=== PATIENT | female | born 1980 | race Caucasian/White ===

== ENCOUNTER 2018-01-31 18:39 | Emergency (ER) | payer MEDICAID, SELFPAY ==
[2018-01-31 18:40] VITALS: BP 121/73; PULSE 96; RESP 16; TEMP 37.1; O2SAT 97; BMI 26.6
--- NOTE | 2018-01-31 20:40 | ED.DCSUM_ITS ---
- ER Visit Summary Date of Service: 01/31/18 Chief Complaint: [] Cough/wheezing History of Present Illness: The patient is a 37 F [] asthmatic who presents with URI symptoms and worsening wheezing. Patient reports really using rescue inhaler prior to arrival without relief. She reports mild sore throat. Denies fevers. No other complaints at this time. She reports not using her asthma medications for the last 6 months. Physical Examination: [] Afebrile, vital signs stable. Cardia vascular exam is regular rate and rhythm. Lungs show wheezing in all lung nassar. Abdomen is soft and nontender. Remainder of exam is unremarkable. Test Results: [] None. Emergency Department Course and Treatment: [] Patient given albuterol and DuoNeb aerosol and 60 mg p.o. of prednisone. She was given a prescription for prednisone 40 mg ?5. She was encouraged to follow- up with her primary care physician. Treatment Plan: [] Follow-up with PCP. Disposition: [] Discharge, stable. Impression: [] URI Asthma exacerbation This note was generated with [employer] dictation software. It may contain incorrect words, spelling, and punctuation that were not noted in review of the chart prior to signing ED Disposition - Plan for ED Patient: Chief Complaint: Cough Referrals: Issac Jurado MD [Primary Care Provider] -
--- NOTE | 2018-01-31 20:40 | ED.DEP ---
ED Disposition - Plan for ED Patient: Disposition: Home or Assisted Living Chief Complaint: Cough Instructions: ED Bronchitis Asthmatic Prescriptions: Prednisone 20 mg PO BID #10 tab Referrals: Issac Jurado MD [Primary Care Provider] -
[2018-01-31 20:45] VITALS: PULSE 78; RESP 18
[2018-01-31] MEDS: Albuterol 2.5 MG/3 ML VIAL.NEB. INHALATION (20:45)
[2018-01-31] MEDS: Ipratropium/Albuterol Sulfate 3 ML AMPUL.NEB INHALATION (20:45)
[2018-01-31 20:54] VITALS: O2SAT 99
== END 2018-01-31 21:26 | disposition home or self-care (01) ==
LOC: ED 21:17
PROVIDERS: Emergency Provider Emergency Medicine; Family Provider Family Medicine; PCP Family Medicine
DX: J45.901 Unspecified asthma with (acute) exacerbation (principal); J06.9 Acute upper respiratory infection, unspecified; Z72.0 Tobacco use
CPT/HCPCS: 94640; 99282

== ENCOUNTER 2018-02-08 12:46 | Emergency (ER) | payer MEDICAID, SELFPAY ==
[2018-02-08 12:47] VITALS: BP 117/65; PULSE 83; RESP 18; TEMP 36.6; O2SAT 98; BMI 26.6
[2018-02-08 13:02] VITALS: BP 110/54; PULSE 93; RESP 14; O2SAT 98
--- NOTE | 2018-02-08 13:31 | ED.DCSUM_ITS ---
- ER Visit Summary Date of Service: 02/08/18 Chief Complaint: [Swelling to face and rash] History of Present Illness: The patient is a 37 F [presents to the emergency department with a rash that started yesterday on her right shoulder]. Patient developed swelling to her right upper eyelid and lips. Patient has the rash on her upper extremities. Slightly pruritic. Patient took some Benadryl yesterday. Patient has had similar episodes in the past. But never with the swelling to her lips. She denies any difficulty swallowing or difficulty breathing. Patient states she finished prednisone 2 days ago for bronchitis. Patient was not on antibiotics. Patient denies any other new medications. She denies any new soaps or detergents. Patient does not think she is . Patient has been under increased stress recently as she has a sick relative in hospice. Physical Examination: [HEENT-PERRLA, EOMI. Cranial nerves II through XII grossly intact. TMs clear. Mucous membranes moist. No adenopathy. Patient has urticaria involving the right upper eyelid as well as the upper and lower lips. There is no evidence of angioedema of the tongue or the oropharynx. Cardiovascular-regular rate and rhythm without murmur or ectopy Lungs-clear to auscultation, chest wall stable without crepitus or subcu emphysema Abdomen-normoactive bowel sounds, soft, nontender, no rebound or rigidity, no peritoneal signs. Skin exam-patient has urticaria involving right posterior shoulder, right upper arm, left antecubital area, and face. Extremities-intact ?4, normal range of motion, normal pulses, atraumatic] Test Results: [None indicated] Emergency Department Course and Treatment: [Patient was started on prednisone, Benadryl, and Pepcid] Treatment Plan: [Patient will start prednisone for 5 more days. She is advised to take Benadryl for itching.] Disposition: [Discharged to home in stable condition. Patient advised to return if difficulty swallowing or difficult the breathing.] Impression: Urticaria-etiology uncertain [] This note was generated with [employer] software. It may contain incorrect words, spelling, and punctuation that were not noted in review of the chart prior to signing ED Disposition - Plan for ED Patient: Chief Complaint: Shortness of Breath Referrals: Issac Jurado MD [Primary Care Provider] -
--- NOTE | 2018-02-08 13:31 | ED.DEP ---
ED Disposition - Plan for ED Patient: Chief Complaint: Shortness of Breath Instructions: ED Urticaria Prescriptions: Prednisone [Deltasone] 20 mg PO BID #10 tab Referrals: Issac Jurado MD [Primary Care Provider] - 3-5 Days Calvin Villalpando MD [COURTESY STAFF PHYSICIAN] - 3-5 Days
[2018-02-08] MEDS: predniSONE 20 MG Tablet 40 MG PO (13:53)
[2018-02-08] MEDS: DiphenhydrAMINE 25 MG Capsule PO (13:53)
[2018-02-08] MEDS: Famotidine 20 MG Tablet 40 MG PO (13:53)
[2018-02-08 13:56] VITALS: BP 90/74; PULSE 74; RESP 16; O2SAT 99
== END 2018-02-08 13:57 | disposition home or self-care (01) ==
LOC: ED 13:45
PROVIDERS: Emergency Provider Emergency Medicine; Family Provider Family Medicine; PCP Family Medicine
DX: L50.9 Urticaria, unspecified (principal); J45.909 Unspecified asthma, uncomplicated; Z72.0 Tobacco use
CPT/HCPCS: 99283

== ENCOUNTER 2019-09-01 05:55 | Emergency (ER) | payer BC, SELFPAY ==
[2019-09-01 05:56] VITALS: BP 117/66; PULSE 85; RESP 18; TEMP 36.7; O2SAT 93; BMI 25.9
--- NOTE | 2019-09-01 06:06 | RAD_ITS ---
STUDY: X-RAY CHEST REASON FOR EXAM: Female, 39 years old. Dyspnea TECHNIQUE: Frontal and lateral views of the chest. COMPARISON: None. FINDINGS: The lungs are clear and expanded. There is no demonstrated pleural abnormality. Normal size heart. Normal mediastinum and oliverio. Normal visualized pulmonary arteries. Normal visualized aortic arch and descending thoracic aorta. Normal visualized thoracic spine. Normal visualized ribs, clavicles, and shoulders. There is no demonstrated abnormality of the visualized soft tissue structures of the upper abdomen. RAD/Chest PA and Lateral IMPRESSION: Normal x-ray examination of the chest. Electronically Signed: Ken Contreras, at 7:32 EDT Tel , Service support ,
--- NOTE | 2019-09-01 06:08 | ED.DCSUM_ITS ---
- ER Visit Summary Date of Service: 09/01/19 Chief Complaint: Shortness of breath History of Present Illness: The patient is a 39 F who presents the emergency department with shortness of breath. Patient states that approximately 3 weeks ago she got a cold. She states that then it moved to her sinuses and is now on her chest. She notes wheezing and a cough. She notes fever at home. She has a history of asthma and states she has been doing her nebulizers without any help. Physical Examination: Afebrile vital signs are stable Gen: Well-nourished well-developed Head: Normocephalic atraumatic Eyes: Perrl EOMI ENT: TMs clear no rhinorrhea moist mucous membranes Neck: Supple no lymphadenopathy no JVD nontender CVS: Regular rate rhythm no murmurs normal S1-S2 Respiratory: Patient is slightly tachypneic. She has diminished breath sounds bilaterally with inspiratory and expiratory wheezes. Chest nontender Abdomen: Soft nontender nondistended normal bowel sounds no masses Back: Nontender Extremity: Nontender no edema Skin: Normal color no rash Neuro: alert orientated ?3 CN II-XII intact normal strength Psych: Normal affect normal mood Test Results: A chest x-ray was obtained. I do not see any obvious consolidation. Emergency Department Course and Treatment: Patient received breathing treatments and was given a dose of prednisone. Pretreatment peak flows were 100 posttreatment peak flows were 150. Patient is able to ambulate in the department at 91%. She does not wish to stay in the hospital. Patient was advised that given her peak flows being so low she is a high risk of returning to the hospital. She appears to have the capacity to make this decision. I am going to advise her to do every 2 hour aerosols. I will write her for prednisone. She understands return instructions. Impression: 1. Acute exacerbation of asthma This note was generated with [employer] dictation software. It may contain incorrect words, spelling, and punctuation that were not noted in review of the chart prior to signing Capacity - Capacity Assessment Tool Can the patient make a choice & communicate that choice?: Yes Can the patient understand benefits, risks and alternatives?: Yes Can the patient make a logical, rational choice?: Yes Is the choice the patient makes consistent w/ their values?: Yes Is there an impending, emergent risk to the patient?: No Does the patient have an Advance Directive?: No Is there a Surrogate Available?: No i.e. HCPOA: No i.e. close relative (spouse, child, parent, sibling)?: No ED Disposition - Plan for ED Patient: Disposition: Home or Assisted Living Instructions: ASTHMA, Acute (Adult) Prescriptions: Prednisone [Deltasone] 60 mg PO DAILY #12 tab Prescription Printed Albuterol Aerosols [Ventolin Aerosols] 2.5 mg INHALATION Q4H PRN #25 vial Prescription Printed Azithromycin [Zithromax Z-Mainor] 250 mg PO UD #1 box Prescription Printed Referrals: Issac Jurado MD [Primary Care Provider] - 3-5 Days Additional Instructions: Today I would recommend complete avoidance of tobacco use. You can do every 2 hour albuterol treatments Return to the emergency department if you feel you are worse or call 911 if need be.
[2019-09-01] MEDS: predniSONE 20 MG Tablet 60 MG PO (06:12)
[2019-09-01 06:19] VITALS: PULSE 98; RESP 22
[2019-09-01] MEDS: Ipratropium/Albuterol Sulfate 3 ML AMPUL.NEB INHALATION (06:19)
[2019-09-01] MEDS: Albuterol 2.5 MG/3 ML VIAL.NEB. INHALATION ×3 (06:19)
== END 2019-09-01 07:22 | disposition home or self-care (01) ==
PROVIDERS: Emergency Provider Emergency Medicine; Family Provider Family Medicine; PCP Family Medicine
DX: J45.901 Unspecified asthma with (acute) exacerbation (principal); Z72.0 Tobacco use
CPT/HCPCS: 71046; 94640; 99283

== ENCOUNTER 2019-09-10 01:39 | Observation (INO) | payer BC, SELFPAY ==
[2019-09-10] VITALS (15 sets, daily range): BP systolic 96–115; BP diastolic 46–74; PULSE 73–102; RESP 18–24; TEMP 36.6–37; O2SAT 89–95; BMI 25.7; BMI 25.2; BMI 25.3
--- NOTE | 2019-09-10 01:56 | RAD_ITS ---
STUDY: X-RAY CHEST REASON FOR EXAM: Female, 39 years old. Asthma. TECHNIQUE: PA and lateral views of the chest. COMPARISON: 09/01/2019. FINDINGS: The lungs are clear and expanded. There is no demonstrated pleural abnormality. Normal size heart. Normal mediastinum and oliverio. Normal visualized pulmonary arteries. Normal visualized aortic arch and descending thoracic aorta. Normal visualized thoracic spine. Normal visualized ribs, clavicles, and shoulders. There is no demonstrated abnormality of the visualized soft tissue structures of the upper abdomen. RAD/Chest PA and Lateral IMPRESSION: Normal x-ray examination of the chest. Electronically Signed: Mary Ann Brown MD at 2:52 EDT , Service support ,
--- NOTE | 2019-09-10 01:56 | EKG12_ITS ---
Test Reason : SOB Blood Pressure : / mmHG Vent. Rate : 092 BPM Atrial Rate : 092 BPM P-R Int : 140 ms QRS Dur : 072 ms QT Int : 338 ms P-R-T Axes : 080 086 020 degrees QTc Int : 417 ms Normal sinus rhythm Possible Left atrial enlargement Borderline ECG Confirmed by COLE MCGHEE, RAUDEL ([id number]), graphic editor MILKA GUERRERO ([id number]) on 09/12/2019 11:00:24 AM Referred By: ELINOR Confirmed By:RAUDEL GALVAN MD
[2019-09-10] MEDS: 0.9% Normal Saline 1,000 ML 150 ML IV (02:09)
[2019-09-10] MEDS: MethylPREDNISolone 125 MG/2 ML Vial IV (02:10)
[2019-09-10 02:22] LABS: Absolute Lymphocyte Count 2.77 X10^3/uL (0.83-4.51); Basophil# 0.04 X10^3/uL; Basophil% 0.3 % (0-1); Eosinophil# 0.92 X10^3/uL; Eosinophils% 6.8 % (0-5); Hematocrit 44.8 % (37-47); Hemoglobin 14.6 g/dL (12.0-15.0); Lymphocyte # 2.77 X10^3/ul (4.0); Lymphocyte % 20.4 % (19-41); Mean Corp Hgb Conc 32.6 g/dL (32-36); Mean Corpuscular Hgb 31.1 pg (27.0-32.0); Mean Corpuscular Volume 95.5 fL (81-99); Mean Platelet Vol. 11.2 fl (6.2-12.0); Monocyte# 0.76 X10^3/uL; Monocyte% 5.6 % (0-10); NRBC Flagged by Analyzer 0 % (0-5); Neutrophil # 9.01 X10^3/uL (2.7-7.7); Neutrophil % 66.5 % (47-70); Platelet Count 261 K/mm3 (150-450); RBC Distribution Width CV 13.3 % (11.6-14.6); RBC Distribution Width SD 47.1 fl (35.1-43.9); Red Blood Count 4.69 M/mm3 (4.2-5.4); White Blood Count 13.6 K/mm3 (4.4-11.0)
[2019-09-10 02:36] LABS: D-Dimer Quantitative (DVT/PE) < 0.27 FEU/ug/m (0.27-0.49)
[2019-09-10] MEDS: Ipratropium/Albuterol Sulfate 3 ML AMPUL.NEB INHALATION ×5 (02:36→19:50)
[2019-09-10] MEDS: Albuterol 2.5 MG/3 ML VIAL.NEB. INHALATION ×3 (02:36→02:40)
[2019-09-10 02:38] LABS: Anion Gap 7 (5-15); BUN 7 mg/dL (7-18); BUN/Creat Ratio 10.5 RATIO (10-20); Calcium,Total 9.1 mg/dL (8.5-10.1); Chloride 106 mmol/L (98-107); Creatinine, Serum 0.67 mg/dL (0.55-1.02); EST Glomerular Filtration Rate 104 mL/min (>60); Est Glom Filt Rate - Afr Amer 126 mL/min (>60); Estimated Creatinine Clearance 108.54 ml/min; Glucose 108 mg/dL (74-106); Potassium 4.4 mmol/L (3.5-5.1); Sodium Level 138 mmol/L (136-145)
--- NOTE | 2019-09-10 03:01 | ED.DCSUM_ITS ---
- ER Visit Summary Date of Service: 09/10/19 Chief Complaint: [Shortness of breath] History of Present Illness: The patient is a 39 F [presents to the emergency department with shortness of breath she has had for over a month. Patient states that she was seen in the emergency department about a week ago and was started on Zithromax and prednisone and felt better for a few days but about 2 days ago started feeling more short of breath again. Patient has had posttussive emesis. Her cough is mostly nonproductive. She has chest pain with cough only. She denies recent travel or surgery. She has no history of PE or DVT. She has had subjective fever and chills at home. Patient has history of asthma. Patient is a smoker.] Physical Examination: [HEENT-PERRLA, EOMI. Cranial nerves II through XII grossly intact. TMs clear. Mucous membranes moist. No adenopathy. Cardiovascular-regular rate and rhythm without murmur or ectopy Lungs-diminished bilaterally with expiratory wheezes throughout. Patient does have some tachypnea. She does have some conversational dyspnea. No accessory muscle use or retractions. Abdomen-normoactive bowel sounds, soft, nontender, no rebound or rigidity, no peritoneal signs. Extremities-intact ?4, normal range of motion, normal pulses, atraumatic] Test Results: [CBC with differential and a slightly elevated white count 13.6, hemoglobin 14.6, hematocrit 45, platelets 261. Chemistries unremarkable. EKG obtained arrival showed a sinus rhythm with a ventricular rate of 92 bpm. D- dimer is less than 0.27. Chest x-ray was read as normal.] Emergency Department Course and Treatment: [Was given DuoNeb aerosol as well as albuterol aerosols. Patient started on Solu-Medrol 125 mg IV. On repeat examination patient continuing to wheeze and O2 sat bouncing between 89% and 93 and 94%.] Treatment Plan: [Admit] Disposition: [Admit] Impression: [Status asthmaticus] This note was generated with [employer] dictation software. It may contain incorrect words, spelling, and punctuation that were not noted in review of the chart prior to signing ED Disposition - Plan for ED Patient: Referrals: Issac Jurado MD [Primary Care Provider] -
--- NOTE | 2019-09-10 03:01 | PCM.HP.STD ---
Problem List (1) History of asthma Status: Chronic (2) Asthma Status: Acute History of Present Illness Date of Admission: 09/10/19 Chief Complaint: shortness of breath The patient is a 39 year old F with a significant history of tobacco abuse and asthma who presented with shortness of breath that started 2 days before presentation. She actually reported feeling short of breath for one month and being started on steroid and Z-navin. As soon she completed the steroid and Z-navin therapy her shortness of breath returned. She reports failing an outpatient lung test recently. Associated with symptoms is productive cough of thick sputum. She reports coughing to the point that she vomits. Also she has rhinorrhea; headache; chills; diaphoresis and subjective fever. At home she was wheezing. And she was requiring her breathing treatment every 2 hours. Further she has orthopnea and paroxysmal nocturnal dyspnea. Past Medical History Past Medical History (Chronic Problems): Chronic Problems History of asthma (Chronic) Allergies guaifenesin [From Mucinex] Allergy (Verified 09/10/19 01:41) Anaphylaxis Home Medications: Ambulatory Orders Medication Instructions Recorded Albuterol Aerosols [Ventolin 2.5 mg INHALATION Q4H PRN #25 vial 09/01/19 Aerosols] Surgical History: tonsillectomy - tubal ligation, - Lives: Spouse/ Significant Other Smoking Status: Current every day smoker Tobacco Use: Cigarettes - *Family History Paternal History Items: - - Patient does not know Maternal History Items: Cancer - thyroid and adrenal, Hypertension, Pulmonary Disease Review of Systems Constitutional: Reports: Chills, Fever - subjective. Denies: Weight Change HEENT: Reports: Head Aches, Sinus Drainage Cardiovascular: Denies: Chest Pain, Palpitations Respiratory: Reports: Cough, Shortness of Breath, Shortness of breath at rest, Shortness of breath upon exertion, Sputum production, Wheezing Gastrointestinal: Reports: Vomiting. Denies: Abdominal Pain, Nausea Genitourinary: Denies: Dysuria Musculoskeletal: Denies: Joint Pain, Joint Tenderness Skin: Denies: Rash, Wounds Neurological: Denies: Numbness, Tingling, Focal weakness Psychiatric: Denies: Anxiety, Depression, Homicidal Ideations, Suicidal Ideations Hematologic/ Lymphatic: Denies: Easy Bruising, Easy Bleeding VTE Information - Inpt Only VTE Present on Admission: No VTE Mechan Device Prophylaxis: None VTE Pharm Prophylaxis ordered?: No Reason prophylaxis not ordered:: Treatment Not Indicated - Low risk, encourage to ambulate. Patient Problems: Active and Suspected Problems Asthma (Acute) - Physical Exam Vitals/I&O's: Vital Signs Temp Pulse Resp BP Pulse Ox 98.3 F 93 22 H 108/66 91 09/10/19 01:41 09/10/19 02:36 09/10/19 02:36 09/10/19 02:04 09/10/19 02:04 Oxygen Delivery Method Room Air Weight: 74.389 kg Body Mass Index (BMI) 25.7 General: Alert, Oriented x3, Cooperative HEENT: Atraumatic, PERRLA, EOMI, Normocephalic Neck: Supple, No JVD, Negative Carotid Bruits Lungs: No rhonchi, Rhonchi, Short of Breath, Tachypneic, Using Accessory Muscles, Wheezes, - - conversational dyspnea Cardiovascular: Regular rate, No murmurs Abdomen: Bowel Sounds Present, Soft, Non Tender Extremities: No edema, Capillary Refill Less than 3 Seconds Skin: No rashes, No breakdown Musculoskeletal: No Tenderness to Palpation of Joints or Extremities Neurological: Cranial nerves II-XII grossly intact Psych/Mental Status: Normal Affect, Appropriate Laboratory Results 09/10/19 02:10: WBC 13.6 H, RBC 4.69, Hgb 14.6, Hct 44.8, MCV 95.5, MCH 31.1, MCHC 32.6, RDW Std Deviation 47.1 H, RDW Coeff of Karime 13.3, Plt Count 261, MPV 11.2, Immature Gran % (Auto) 0.400, Neut % (Auto) 66.5, Lymph % (Auto) 20.4, [place] % (Auto) 5.6, Eos % (Auto) 6.8 H, Baso % (Auto) 0.3, Absolute Neuts (auto) 9.0 H, Absolute Lymphs (auto) 2.77, Nucleated RBC % 0 09/10/19 02:10: D-Dimer Quant (PE/DVT) < 0.27 L 09/10/19 02:10: Sodium 138, Potassium 4.4, Chloride 106, Carbon Dioxide 25.0, Anion Gap 7, BUN 7, Creatinine 0.67, Estim Creat Clear Calc 108.54, Est GFR (MDRD) Af Amer 126, Est GFR (MDRD) Non-Af 104, BUN/Creatinine Ratio 10.5, Glucose 108 H, Calcium 9.1 Current Medications Sodium Chloride () 1,000 mls @ 150 mls/hr IV .Q6H40M ONE Stop: 09/10/19 08:35 Last Admin: 09/10/19 02:09 Dose: 150 mls/hr Documented by: Assessment/Plan All Active Problems Asthma (Acute) The patient is a 39 year old F with a significant history of tobacco abuse and asthma who presented with shortness of breath; productive cough of thick sputum; rhinorrhea; headache; chills; diaphoresis; wheezing;orthopnea; PND; subjective fever; hypoxia; tachypnea; use of accessory muscles of respiration; and conversational dyspnea consistent with acute aspiration of asthma. Asthma CXR independently reviewed confirms no acute cardiopulmonary process Oxygen saturation at ED 89 to 91% on room air. Scheduled DuoNeb Albuterol as needed Received Solu-Medrol at the ED. Continue on Solu-Medrol. Oxygen as needed Influenza screen Johnnie Jameson ordered Flonase ordered Tylenol prn Monitor CBC Leukocytosis Likely secondary to prior steroids. Completed Z-navin recently Trend Tobacco Abuse Counselled Declined nicotine patch as she is sure that she can do it without the patch. DVT Prophylaxis Low risk Code Visit OBSV E&M: [id number] Initial observation care L2
[2019-09-10] MEDS: Acetaminophen 325 MG Tablet 650 MG PO (05:50)
--- NOTE | 2019-09-10 07:49 | PCM.PROGNOTE ---
Patient Problems: Active and Suspected Problems Asthma (Acute) Subjective: Patient is a 39-year-old female with a past medical history of tobacco dependence and asthma who presented to the emergency department at [facility] on 09/10/2019 complaining of shortness of breath, cough productive of thick sputum, rhinorrhea, headache, chills, orthopnea and subjective fever. In the emergency room she had tachypnea, conversational dyspnea and accessory muscle use. Oxygen saturation on room air in the emergency room ranged from 89 to 91%. She was admitted to the hospital and started on high-dose intravenous steroids, [id number] aerosolized bronchodilators and supplemental oxygen. She is afebrile. White blood cell count was elevated at 13.6 with increased eosinophils at 6.8%. BMP was unremarkable. Chest x-ray was normal. Influenza was negative. she denies any hx of seasonal allergies but, does tell me that they just mowed down their nassar. Denies pruritus. She has tried to quit smoking and has used Wellbutrin, Chantix and a nicotine patch without success. She has smoking since she was 14. Breathing is still a little rough but better than at admission. She has a cough but, this is chronic and not acute. - Physical Exam Vitals/I&O's: Vital Signs Temp Pulse Resp BP Pulse Ox 98.6 F 90 24 H 96/64 92 09/10/19 04:47 09/10/19 04:47 09/10/19 04:47 09/10/19 04:47 09/10/19 04:47 Oxygen Delivery Method Room Air Weight: 161 lb 9.581 oz Body Mass Index (BMI) 25.2 General: Alert, Oriented x3, Cooperative HEENT: Atraumatic, PERRLA, EOMI Oral: Dry Mucosa Neck: Supple, No Nodes, Trachea Midline Lungs: Wheezes - sShe is mild tachypneic and speaking in 4-5 word phrases. No accessory muscle use. he has expiratory wheezes in all lung nassar and coarse rhonchi with inspiration. No rales.She is speaking in 4-5 word phrases and is mild tachyneic. She has no accessory muscle use at present. Cardiovascular: Regular rate, Regular Rhythm, Normal S1, Normal S2, No murmurs, No rub noted, No Gallop Abdomen: Bowel Sounds Present, Soft, Non Tender, Non-Distended Extremities: No clubbing, No cyanosis, No edema Neurological: Cranial nerves II-XII grossly intact, Neuro grossly intact Psych/Mental Status: Normal Affect, Appropriate Microbiology Past 72 Hours 09/10/19 05:40 Mucosa - Nasopharyngeal Influenza Types A,B Direct FA (YAMILET) - Final Laboratory Results 09/10/19 02:10: WBC 13.6 H, RBC 4.69, Hgb 14.6, Hct 44.8, MCV 95.5, MCH 31.1, MCHC 32.6, RDW Std Deviation 47.1 H, RDW Coeff of Karime 13.3, Plt Count 261, MPV 11.2, Immature Gran % (Auto) 0.400, Neut % (Auto) 66.5, Lymph % (Auto) 20.4, [place] % (Auto) 5.6, Eos % (Auto) 6.8 H, Baso % (Auto) 0.3, Absolute Neuts (auto) 9.0 H, Absolute Lymphs (auto) 2.77, Nucleated RBC % 0 09/10/19 02:10: D-Dimer Quant (PE/DVT) < 0.27 L 09/10/19 02:10: Sodium 138, Potassium 4.4, Chloride 106, Carbon Dioxide 25.0, Anion Gap 7, BUN 7, Creatinine 0.67, Estim Creat Clear Calc 108.54, Est GFR (MDRD) Af Amer 126, Est GFR (MDRD) Non-Af 104, BUN/Creatinine Ratio 10.5, Glucose 108 H, Calcium 9.1 Current Medications Acetaminophen (Tylenol) 650 mg PO Q6H PRN PRN PRN Reason: Pain Score 1-3/Temp > 100.7 F Last Admin: 09/10/19 05:50 Dose: 650 mg Documented by: Albuterol Sulfate (Ventolin Aerosols) 2.5 mg INHALATION Q2H PRN PRN PRN Reason: Shortness of Breath/Wheezing Albuterol/Ipratropium (Duoneb) 3 ml INHALATION Q4HWA.RT MAURICE Dextrose (D50w Syringe) 0 gm IV X1 PRN; Protocol PRN Reason: Hypoglycemia Fluticasone Propionate (Flonase Nasal [place]) 2 spray NASAL DAILY MAURICE Glucagon () 1 mg IM .X1 PRN PRN Reason: Hypoglycemia Sodium Chloride () 1,000 mls @ 150 mls/hr IV .Q6H40M ONE Stop: 09/10/19 08:35 Last Admin: 09/10/19 02:09 Dose: 150 mls/hr Documented by: Methylprednisolone (Solu-Medrol) 40 mg IV Q8 MAURICE Ondansetron HCl (Zofran) 4 mg IV Q8H PRN PRN PRN Reason: NAUSEA/VOMITING Medical Necessity - Tobacco Use Smoking Status: Current every day smoker Tobacco Use: Cigarettes Assessment/Plan All Active Problems Asthma (Acute) Impressions 1. Acute exacerbation of asthma with increased eosinophils-possibly related to extrinsic allergies. Continue high-dose intravenous steroids and [id number] aerosol treatments. I suggested she may want to get allergy testing in the future so that she can identify what she is allergic to and possibly be desensitized. 2. Tobacco dependence - Has failed nicotine patch, Wellbutrin and Chantix. Does not know why she smokes. She denies anxiety and depression. 3. Leukocytosis-more likely than not secondary to stress May need an antihistamine at DC in addition to a prednisone taper Ambulatory pulse ox on RA prior to DC.
[2019-09-10] MEDS: Fluticasone 0.05% 1 SPRAY NASAL.SRY 2 SPRAY NASAL (08:44)
[2019-09-10] MEDS: 0.9% Saline Lock 10 ML Syringe IV (21:50)
[2019-09-11 03:41] VITALS: BP 108/63; PULSE 68; RESP 18; TEMP 36.6; O2SAT 97
[2019-09-11 05:56] LABS: Absolute Lymphocyte Count 1.44 X10^3/uL (0.83-4.51); Absolute Neutrophil Count 22.4 X10^3/uL (2.0-7.7); Basophil# 0.03 X10^3/uL; Basophil% 0.1 % (0-1); Eosinophil# 0.01 X10^3/uL; Hematocrit 41.5 % (37-47); Hemoglobin 13.2 g/dL (12.0-15.0); Lymphocyte # 1.44 X10^3/ul (4.0); Lymphocyte % 5.8 % (19-41); Mean Corp Hgb Conc 31.8 g/dL (32-36); Mean Corpuscular Hgb 31.1 pg (27.0-32.0); Mean Corpuscular Volume 97.6 fL (81-99); Mean Platelet Vol. 11.2 fl (6.2-12.0); Monocyte# 0.83 X10^3/uL; Monocyte% 3.3 % (0-10); NRBC Flagged by Analyzer 0 % (0-5); Neutrophil # 22.37 X10^3/uL (2.7-7.7); Neutrophil % 89.8 % (47-70); POSITIVE DIFFERENTIAL YES; Platelet Count 259 K/mm3 (150-450); RBC Distribution Width CV 13.5 % (11.6-14.6); RBC Distribution Width SD 48.7 fl (35.1-43.9); Red Blood Count 4.25 M/mm3 (4.2-5.4); White Blood Count 24.9 K/mm3 (4.4-11.0)
[2019-09-11 06:13] LABS: Differential Indicated SCAN CRITERIA MET
[2019-09-11] MEDS: 0.9% Saline Lock 10 ML Syringe IV (06:31)
[2019-09-11 06:35] VITALS: RESP 18; O2SAT 92
[2019-09-11 06:48] VITALS: PULSE 75; RESP 16; O2SAT 90
[2019-09-11] MEDS: Ipratropium/Albuterol Sulfate 3 ML AMPUL.NEB INHALATION ×2 (06:48→11:18)
[2019-09-11 07:05] LABS: Differential Comment SCANNED
[2019-09-11] MEDS: Fluticasone 0.05% 1 SPRAY NASAL.SRY 2 SPRAY NASAL (08:43)
[2019-09-11 08:44] VITALS: BP 105/50; PULSE 97; RESP 18; TEMP 36.6; O2SAT 96
[2019-09-11 11:18] VITALS: PULSE 98; RESP 16
--- NOTE | 2019-09-11 11:18 | DCINST_ITS ---
- Discharge Diagnoses Current Active Problems: Current Active and Chronic Problems Asthma (Acute) You will use the following diet at home:: Regular Your food should be the consistency of: Regular Your liquids should be the consistency of: Regular/Thin Discharge Activity: Return to Normal Activity Call your doctor if you observe: Fever of 101 or Higher, Shortness of breath, Dizziness, Fainting spells, Swelling in the ankles, Chest pain, Increased palpitations (irregular heartbeat) Allergies/Adverse Reactions: Allergies guaifenesin [From Mucinex] Allergy (Verified 09/10/19 01:41) Anaphylaxis Medications to take at Discharge Albuterol Aerosols [Ventolin Aerosols] 2.5 mg INHALATION Q4H PRN #25 vial 09/01/19 Albuterol IH (ProAir) [Proair Hfa] 2 puff INHALATION Q4H PRN PRN #1 inhaler 09/11/19 Prednisone [Deltasone] 40 mg PO DAILY #14 tab 09/11/19 The following prescriptions were given: Prednisone [Deltasone] 40 mg PO DAILY #14 tab Transmission Status: Pending to [facility] Albuterol IH (ProAir) [Proair Hfa] 2 puff INHALATION Q4H PRN PRN #1 inhaler PRN Reason: Wheezing Transmission Status: Pending to [facility] Primary Care Physician: Issac Jurado MD [Primary Care Provider] - Please follow up with your Primary Care Physician in: 3-5 days Test Results: Test results from this visit will be discussed in further detail at your follow- up appointment, if applicable.
--- NOTE | 2019-09-11 13:04 | PCM.DC.SUM ---
Discharge Date and Diagnosis - Problem List Patient Problems: Active and Suspected Problems Asthma (Acute) Date of Admission: 09/10/19 Date of Discharge: 09/11/19 - Primary Discharge Diagnosis Active and Suspected Problems Asthma (Acute) - Secondary Discharge Diagnosis Chronic Problems History of asthma (Chronic) Hospital Course and Treatment Imaging Results: CXR: IMPRESSION: Normal x-ray examination of the chest. Consults: None Operations: None Procedures: None Summary of Care Provided: Per HPI: The patient is a 39 year old F with a significant history of tobacco abuse and asthma who presented with shortness of breath that started 2 days before presentation. She actually reported feeling short of breath for one month and being started on steroid and Z-navin. As soon she completed the steroid and Z-navin therapy her shortness of breath returned. She reports failing an outpatient lung test recently. Associated with symptoms is productive cough of thick sputum. She reports coughing to the point that she vomits. Also she has rhinorrhea; headache; chills; diaphoresis and subjective fever. At home she was wheezing. And she was requiring her breathing treatment every 2 hours. Further she has orthopnea and paroxysmal nocturnal dyspnea. Hospital Course: 1. Acute asthma exacerbation/leukocytosis/tobacco [id number] female who continues to smoke, presented with shortness of breath. She had been to the ER on Wednesday prior with something similar and at that time they asked her to stay for an admission and she decided to go home. She had been on steroids and azithromycin which explains why she had an elevated white count on admission. She was continued on Solu-Medrol while here as well as nebulizers. She is much better and is wanting to go home today. I did advise her that she follow-up with her primary care physician in 3 to 5 days. Also on admission she had a d-dimer which was normal therefore a CTA of the chest was not pursued. We will discharge her with an albuterol inhaler as well as 7 days of prednisone. I discussed with her how to use her albuterol inhaler and she did express understanding. I also recommend that, since she does have an allergic component to this as her eosinophils were elevated and she states at this time a year she tends to get allergies, that she should also start using Flonase [id number]. I discussed the risks and benefits of discharge with her and her who was present and they both expressed understanding. Did discuss with her tobacco cessation as well. Patient Problems: Active and Suspected Problems Asthma (Acute) - Physical Exam Vitals/I&O's: Vital Signs Temp Pulse Resp BP Pulse Ox 97.9 F 98 16 105/50 L 96 09/11/19 08:44 09/11/19 11:18 09/11/19 11:18 09/11/19 08:44 09/11/19 08:44 Oxygen Flow Rate (L/min) 2 Oxygen Delivery Method Room Air Weight: 161 lb 9.581 oz Body Mass Index (BMI) 25.2 Intake and Output for Last 24 Hours 09/09/19 09/10/19 09/11/19 23:59 23:59 23:59 Intake Total 2000 / 2400 600 / 600 Output Total 200 / 200 Balance 1800 / 2200 600 / 600 General: Alert, Oriented x3, Cooperative, No apparent distress HEENT: Atraumatic, PERRLA, EOMI, Normocephalic Oral: Moist Mucosa Neck: Supple, No JVD Lungs: No rhonchi, No rales, Wheezes Cardiovascular: Regular rate, Regular Rhythm, Normal S1, Normal S2, No murmurs Abdomen: Soft, Non Tender, Non-Distended, No Hepato-splenomegaly Extremities: No edema, Capillary Refill Less than 3 Seconds Skin: No rashes, No breakdown Neurological: Neuro grossly intact, Sensory exam intact to light touch and pain Psych/Mental Status: Normal Affect, Appropriate Microbiology Past 72 Hours 09/10/19 05:40 Mucosa - Nasopharyngeal Influenza Types A,B Direct FA (YAMILET) - Final Laboratory Results 09/11/19 05:32: WBC 24.9 H, RBC 4.25, Hgb 13.2, Hct 41.5, MCV 97.6, MCH 31.1, MCHC 31.8 L, RDW Std Deviation 48.7 H, RDW Coeff of Karime 13.5, Plt Count 259, MPV 11.2, Immature Gran % (Auto) 1.000 H, Neut % (Auto) 89.8 H, Lymph % (Auto) 5.8 L, [place] % (Auto) 3.3, Eos % (Auto) 0.0, Baso % (Auto) 0.1, Absolute Neuts (auto) 22.4 H, Absolute Lymphs (auto) 1.44, Nucleated RBC % 0, Differential Comment SCANNED Current Medications Acetaminophen (Tylenol) 650 mg PO Q6H PRN PRN PRN Reason: Pain Score 1-3/Temp > 100.7 F Last Admin: 09/10/19 05:50 Dose: 650 mg Documented by: Albuterol Sulfate (Ventolin Aerosols) 2.5 mg INHALATION Q2H PRN PRN PRN Reason: Shortness of Breath/Wheezing Albuterol/Ipratropium (Duoneb) 3 ml INHALATION Q4HWA.RT [facility] Last Admin: 09/11/19 11:18 Dose: 3 ml Documented by: Dextrose (D50w Syringe) 0 gm IV X1 PRN; Protocol PRN Reason: Hypoglycemia Fluticasone Propionate (Flonase Nasal [place]) 2 spray NASAL DAILY [facility] Last Admin: 09/11/19 08:43 Dose: 2 spray Documented by: Glucagon () 1 mg IM .X1 PRN PRN Reason: Hypoglycemia Methylprednisolone (Solu-Medrol) 40 mg IV Q8 [facility] Last Admin: 09/11/19 06:31 Dose: 40 mg Documented by: Ondansetron HCl (Zofran) 4 mg IV Q8H PRN PRN PRN Reason: NAUSEA/VOMITING Sodium Chloride () 10 - 40 ml IV UD PRN PRN Reason: SALINE FLUSH Last Admin: 09/11/19 06:31 Dose: 10 ml Documented by: Discharge Activity: Return to Normal Activity Call your doctor if you observe: Fever of 101 or Higher, Shortness of breath, Dizziness, Fainting spells, Swelling in the ankles, Chest pain, Increased palpitations (irregular heartbeat) Home Medications: Medications to take at Discharge Albuterol Aerosols [Ventolin Aerosols] 2.5 mg INHALATION Q4H PRN #25 vial 09/01/19 Albuterol IH (ProAir) [Proair Hfa] 2 puff INHALATION Q4H PRN PRN #1 inhaler 09/11/19 Prednisone [Deltasone] 40 mg PO DAILY #14 tab 09/11/19 Following Prescrptions Were Given to Patient: Prednisone [Deltasone] 40 mg PO DAILY #14 tab Transmission Status: Received by [facility] Albuterol IH (ProAir) [Proair Hfa] 2 puff INHALATION Q4H PRN PRN #1 inhaler PRN Reason: Wheezing Transmission Status: Received by [facility] Primary Care Physician: Issac Jurado MD [Primary Care Provider] - Please follow up with your Primary Care Physician in: 3-5 days Disposition: Home Minutes spent on discharge:: 35 Patient Condition:: Stable Medical Necessity - Tobacco Use Smoking Status: Current every day smoker Tobacco Use: Cigarettes Meaningful Use Info Meaningful Use Diagnoses (Choose all that apply): None applicable Code Visit OBSV E&M: 66440 Observation care discharge
== END 2019-09-11 12:15 | disposition home or self-care (01) ==
LOC: ED 02:33 → MS3 04:07
PROVIDERS: Admitting Provider Hospitalist; Emergency Provider Emergency Medicine; Family Provider Family Medicine; PCP Family Medicine; Visit Provider Family Medicine
DX: J45.901 Unspecified asthma with (acute) exacerbation (principal); F17.210 Nicotine dependence, cigarettes, uncomplicated; D72.829 Elevated white blood cell count, unspecified
CPT/HCPCS: 36415; 71046; 80048; 85025; 85379; 87804; 93005; 94640; 96361; 96374; 96375; 96376; 99218; 99285; J7030; A4216; G0378

== ENCOUNTER → 2020-08-31 07:34 | Emergency (ER) ==
--- NOTE | 2020-08-31 07:47 | ED.DCSUM_ITS ---
History of Present Illness Chief Complaint: Shortness of Breath Informant: Patient Narrative: Patient states that several days ago she developed rhinorrhea and a cough. Cough is gotten progressively worse and she has felt herself wheezing. She is an asthmatic and is supposed to take Symbicort but due to financial constraints has not been taking it. She has a nebulizer and rescue inhaler at home. She notes decreased p.o. for the past several days. No vomiting or diarrhea. She notes early feeling of fullness. No fevers. - Past Medical History (1) Asthma Status: Chronic Past Medical History - Allergies and Home Meds Allergies/Adverse Reactions: Allergies guaifenesin [From Mucinex] Allergy (Verified 09/10/19 01:41) Anaphylaxis Primary Care Physician: Issac Jurado MD [Primary Care Provider] - Prior records reviewed: Yes Past Medical History: - - Asthma Surgical History: tonsillectomy - tubal ligation, - Smoking Status: Current every day smoker Drugs: None - Family History Paternal Family History: Reports: - - Patient does not know Maternal Family History: Reports: Cancer - thyroid and adrenal, Hypertension, Pulmonary Disease Review of Systems General: Reports: Malaise. Denies: Chills, Fever, Sweats Eyes: Denies: Visual changes - bilaterally, Diplopia ENT: Reports: Rhinorrhea. Denies: Sore throat Cardiovascular: Reports: Chest pain - With palpation and coughing. Denies: Palpitations Respiratory: Reports: Dyspnea, Cough. Denies: Sputum, Dyspnea on exertion Gastrointestinal: Denies: Abdominal pain, Nausea, Vomiting, Diarrhea, Melena, Hematochezia Genitourinary: Denies: Dysuria, Hematuria, Frequency Musculoskeletal: Denies: Back pain, Extremity Pain Skin: Denies: Rash, Wounds Neurological: Denies: Headache, Weakness, Numbness Physical Exam Vital Signs/Narrative: Vital Signs Temp Pulse Resp BP Pulse Ox 08/31/20 07:35 98.1 F 87 16 122/80 H 100 Inital Vital Signs reviewed: Yes General: Well nourished, Well developed, No Acute Distress Head: Normocephalic, Atraumatic Eyes: Perrl, EOMI ENT: Moist mucous membranes, Nasal congestion Neck: Supple, Nontender Cardiovascular: Regular rate, Regular rhythm, No murmurs Respiratory: No distress, Chest nontender, Wheezing - Expiratory bilaterally Abdomen: Soft, Nontender, Nondistended, Normal bowel sounds Back: Nontender, Normal Inspection Extremities: Nontender, No edema Skin: Normal color, No rash Neurological: Alert, Oriented x3, Cranial nerves II-XII grossly intact, Normal Strength, Normal Sensation Psychological: Normal affect, Normal Mood Diagnostic/Tx/Re-eval - Medical Decision Making Chest x-ray shows no acute findings. Patient received a breathing treatment and has less wheezing noted. She has plenty of MDI and nebulizer at home. She will be treated with prednisone. The chest pain is reproducible with palpation and cough I suspect is chest wall related. Covid test was sent. Return if worsening or concerns ED Disposition - Plan for ED Patient: Disposition: Home or Assisted Living Diagnosis: Asthma exacerbation, Viral URI Instructions: ED REACTIVE AIRWAY DISEASE Adult Prescriptions: Prednisone [Deltasone] 60 mg PO DAILY #15 tab Prescription Printed Referrals: Issac Jurado MD [Primary Care Provider] - 3-5 Days if not improving
[2020-08-31] MEDS: Ipratropium/Albuterol Sulfate 3 ML AMPUL.NEB INHALATION (08:07)
[2020-08-31 08:21] VITALS: PULSE 81; RESP 18; O2SAT 100
[2020-08-31] MEDS: predniSONE 20 MG Tablet 60 MG PO (08:28)
--- NOTE | 2020-08-31 08:30 | RAD_ITS ---
STUDY: X-RAY CHEST REASON FOR EXAM: Female, 40 years old patient with cough, shortness of breath, nausea, body aches, and chest pain. TECHNIQUE: Two AP portable views of the chest. COMPARISON: Chest radiograph dated 09/10/2019. FINDINGS: The patient has bilateral nipple piercings. The lungs are clear and hyperexpanded. There is no demonstrated pleural abnormality. Normal size heart. Normal mediastinum and oliverio. Normal visualized pulmonary arteries. Normal visualized aortic arch and descending thoracic aorta. Normal visualized thoracic spine. Normal visualized ribs, clavicles, and shoulders. There is no demonstrated abnormality of the visualized soft tissue structures of the upper abdomen. RAD/Chest 1 View (Portable) IMPRESSION: No radiographic evidence of acute cardiopulmonary disease. Electronically Signed: Kasandra Daugherty MD at 9:21 EDT , Service support ,
== END | disposition home or self-care (01) ==
PROVIDERS: Emergency Medicine
DX: J45.901 Unspecified asthma with (acute) exacerbation (principal); J06.9 Acute upper respiratory infection, unspecified; F17.200 Nicotine dependence, unspecified, uncomplicated
CPT/HCPCS: 71045; 87635; 94640; 94760; 99281; 99283; U0003

== ENCOUNTER 2020-10-03 22:04 | Emergency (ER) | payer SELFPAY ==
[2020-08-31 07:35] VITALS: BMI 24.0
[2020-10-03 22:06] VITALS: BP 135/90; PULSE 74; RESP 18; TEMP 36.6; O2SAT 99; BMI 23.5
--- NOTE | 2020-10-03 22:35 | ED.DCSUM_ITS ---
History of Present Illness Chief Complaint: Shortness of Breath Detail of Chief Complaint: Diarrhea, wheezing, thirsty Informant: Patient Onset: Month(s) - Onset August 31 Context: Sudden Onset Timing: Continuous Quality: Respiratory and GI symptoms Current Severity: Mild Maximum Severity: Moderate Worsened by: Dyspnea on exertion, diarrhea with eating any food Relieved by: Nothing Associated Symptoms: Weakness, generalized malaise Narrative: Patient is a 40-year-old woman who is a smoker. She denies drinking or drug use. She presents with cough that is nonproductive, wheezing, dyspnea, dyspnea on exertion. She does report intermittent rhinorrhea. Denies loss of taste or smell. She denies pain in her ears or drainage from ears. She does report ringing of her ears. Denies headache, photophobia, neck pain or neck stiffness. She does report diarrhea. She is not noted any blood but has reported mucus. There is no history of laboratory bowel disorder. She denies black or maroon- colored stool. She denies vomiting. She denies leg pain, swelling discoloration. She has not noted a rash. She does report intermittent lightheadedness with standing rapidly from a supine position. Prior similar symptoms: Yes Recent Illness/Hospitalization: Yes - Past Medical History (1) Asthma Status: Chronic Past Medical History - Allergies and Home Meds Allergies/Adverse Reactions: Allergies guaifenesin [From Mucinex] Allergy (Verified 10/03/20 22:08) Anaphylaxis Primary Care Physician: Issac Jurado MD [Primary Care Provider] - Surgical History: noncontributory, tonsillectomy - tubal ligation, - Lives: Spouse/ Significant Other Smoking Status: Current every day smoker Alcohol: Rare Drugs: None - Family History Paternal Family History: Reports: - - Patient does not know Maternal Family History: Reports: Cancer - thyroid and adrenal, Hypertension, Pulmonary Disease Review of Systems General: Reports: Malaise. Denies: Chills, Fever, Subjective, Sweats, Weight loss Eyes: Denies: Visual changes - bilaterally, Blurred Vision - bilaterally ENT: Reports: Bilateral ear pain, Rhinorrhea. Denies: Sore throat Cardiovascular: Reports: Palpitations. Denies: Chest pain, Heart racing Respiratory: Reports: Dyspnea, Cough, Dyspnea on exertion. Denies: Sputum, Orthopnea, Paroxysmal nocturnal dyspnea Gastrointestinal: Reports: Diarrhea. Denies: Abdominal pain, Nausea, Vomiting, Constipation, Melena, Hematochezia Genitourinary: Denies: Dysuria, Hematuria, Frequency Musculoskeletal: Denies: Myalgias, Arthralgias, Neck pain, Back pain, Swelling Skin: Denies: Rash, Wounds Neurological: Reports: Weakness. Denies: Headache, Parasthesia, Numbness Psych: Denies: Depression, Anxiety Hematologic: Denies: Easy bruising, Easy bleeding Allergy: Denies: Uticaria, Swelling of the mouth Physical Exam Vital Signs/Narrative: Vital Signs Temp Pulse Resp BP Pulse Ox 10/03/20 22:06 97.9 F 74 18 135/90 H 99 Inital Vital Signs reviewed: Yes General: Well nourished, Well developed, No Acute Distress Head: Normocephalic, Atraumatic Eyes: Perrl, EOMI. Negative for: Pale conjunctiva, Scleral icterus ENT: Moist mucous membranes, No rhinorrhea, TM's clear Neck: Supple, Nontender, No lymphadenopathy, No JVD Cardiovascular: Regular rate, Regular rhythm, No murmurs, Normal S1, Normal S2 Respiratory: No distress, Chest nontender, Rales - Anteriorly with egophony over the right middle lobe., Wheezing, Decreased Air Movement. Negative for: CTA bilaterally, Retractions Abdomen: Soft, Nontender, Nondistended, Normal bowel sounds Rectal: Deferred Back: Nontender, Normal Inspection Extremities: Nontender, No edema Skin: Normal color, No rash, No Trauma. Negative for: Cyanosis, Diaphoresis, Jaundice Neurological: Alert, Oriented x3, Cranial nerves II-XII grossly intact, Normal Strength, Normal Sensation Psychological: Normal affect Diagnostic/Tx/Re-eval Chest X-Ray - ED: 1 View, Read by ED Physician, Read by Radiologist, Normal, Heart, Lungs, Mediastinum, No Acute Disease, - - Tray is unchanged from August 31, 2020. Patient is noted to have her nipples pierced. 10/03/20 23:45 Chest 1 View (Portable) [RAD] Stat Laboratory Results 10/03/20 10/03/20 22:33 23:32 WBC 9.4 RBC 4.66 Hgb 15.2 H Hct 46.2 MCV 99.1 H MCH 32.6 H MCHC 32.9 RDW Std Deviation 48.5 H RDW Coeff of Karime 13.3 Plt Count 241 MPV 11.0 Immature Gran % (Auto) 0.200 Neut % (Auto) 65.2 Lymph % (Auto) 24.2 [place] % (Auto) 5.1 Eos % (Auto) 4.9 Baso % (Auto) 0.4 Absolute Neuts (auto) 6.1 Absolute Lymphs (auto) 2.28 Nucleated RBC % 0 COVID-19 ([place]) Negative Count is normal. Covid test is negative. We will treat for bronchitis with bronchospasm. She will be placed on a burst of prednisone and since she is a smoker and had symptoms for 1month she was treated with doxycycline. - Medical Decision Making Patient may have an upper respiratory infection causing exacerbation of her asthma/COPD. She may also have pneumonia. We will test for Covid. Appropriate blood work and chest x-ray was ordered. She was treated with DuoNeb and albuterol. She also received IV steroids. Patient appears tachypneic at rest. ED Disposition - Plan for ED Patient: Disposition: Home or Assisted Living Diagnosis: Bronchitis, Bronchospasm, acute, Tobacco use Instructions: ED Upper Resp Infec Abx Tx Prescriptions: Prednisone [Deltasone] 40 mg PO DAILY #10 tab Transmission Status: Pending to [facility] Doxycycline 100 mg PO BID #14 cap Transmission Status: Pending to [facility] Albuterol Inhaler [Ventolin Hfa] 2 puff INHALATION Q4H PRN PRN #1 inhaler PRN Reason: Wheezing Transmission Status: Pending to [facility] Referrals: Issac Jurado MD [Primary Care Provider] - 3-5 Days if not improving Additional Instructions: 1. It is in your best interest to quit smoking 2. Take antibiotics until gone 3. May use inhaler every 2 hours while awake for the next 2 days then every 4 hours as needed for wheezing/shortness of breath.
[2020-10-03 22:46] VITALS: PULSE 70; RESP 22; O2SAT 96
[2020-10-03] MEDS: Albuterol 2.5 MG/3 ML VIAL.NEB. INHALATION ×3 (22:46)
[2020-10-03] MEDS: Ipratropium/Albuterol Sulfate 3 ML AMPUL.NEB INHALATION (22:46)
--- NOTE | 2020-10-03 23:20 | CPS ---
x3 Albuterol given to pt. as well; tx. mask used for additional breathing tx.'s in ED
[2020-10-03] MEDS: dexAMETHasone 10 MG/ML Vial IV (23:31)
[2020-10-03 23:33] VITALS: O2SAT 97
[2020-10-03 23:44] LABS: Absolute Lymphocyte Count 2.28 X10^3/uL (0.83-4.51); Absolute Neutrophil Count 6.1 X10^3/uL (2.0-7.7); Basophil# 0.04 X10^3/uL; Basophil% 0.4 % (0-1); Eosinophil# 0.46 X10^3/uL; Eosinophils% 4.9 % (0-5); Hematocrit 46.2 % (37-47); Hemoglobin 15.2 g/dL (12.0-15.0); Lymphocyte # 2.28 X10^3/ul (4.0); Lymphocyte % 24.2 % (19-41); Mean Corp Hgb Conc 32.9 g/dL (32-36); Mean Corpuscular Hgb 32.6 pg (27.0-32.0); Mean Corpuscular Volume 99.1 fL (81-99); Monocyte# 0.48 X10^3/uL; Monocyte% 5.1 % (0-10); NRBC Flagged by Analyzer 0 % (0-5); Neutrophil # 6.14 X10^3/uL (2.7-7.7); Neutrophil % 65.2 % (47-70); Platelet Count 241 K/mm3 (150-450); RBC Distribution Width CV 13.3 % (11.6-14.6); RBC Distribution Width SD 48.5 fl (35.1-43.9); Red Blood Count 4.66 M/mm3 (4.2-5.4); White Blood Count 9.4 K/mm3 (4.4-11.0)
--- NOTE | 2020-10-03 23:45 | RAD_ITS ---
STUDY: X-RAY CHEST REASON FOR EXAM: Female, 40 years old. SINCE August PT HAS HAD SOB,FONTAINE,DIARRHEA,THIRSTY -- PATIENT REFUSED TO REMOVE NIPPLE PIERCINGS TECHNIQUE: Single AP portable view of the chest. COMPARISON: None. FINDINGS: The lungs are clear and expanded. There is no demonstrated pleural abnormality. Normal size heart. Normal mediastinum and oliverio. Normal visualized pulmonary arteries. Normal visualized aortic arch and descending thoracic aorta. Normal visualized thoracic spine. Normal visualized ribs, clavicles, and shoulders. There is no demonstrated abnormality of the visualized soft tissue structures of the upper abdomen. RAD/Chest 1 View (Portable) IMPRESSION: Normal x-ray examination of the chest. Electronically Signed: Ken Contreras, at 0:14 EST Tel , Service support ,
[2020-10-03 23:55] LABS: Probe Check PASS; Specimen Processing Control PASS
[2020-10-04 00:07] LABS: Anion Gap 5 (5-15); BUN 16 mg/dL (7-18); BUN/Creat Ratio 21.4 RATIO (10-20); Calcium,Total 9.4 mg/dL (8.5-10.1); Chloride 108 mmol/L (98-107); Creatinine, Serum 0.75 mg/dL (0.55-1.02); EST Glomerular Filtration Rate 90 mL/min (>60); Est Glom Filt Rate - Afr Amer 109 mL/min (>60); Estimated Creatinine Clearance 95.99 ml/min; Glucose 96 mg/dL (74-106); Potassium 3.7 mmol/L (3.5-5.1); Sodium Level 143 mmol/L (136-145)
[2020-10-04 00:11] LABS: Lactic Acid 1.2 mmol/L (0.4-1.9)
[2020-10-04 00:24] VITALS: BP 99/74; PULSE 89; RESP 16; O2SAT 95
[2020-10-04] MEDS: Doxycycline 100 MG CAPSULE PO (00:26)
[2020-10-04 00:28] VITALS: BP 99/74; PULSE 89; RESP 16; O2SAT 95
== END 2020-10-04 00:28 | disposition home or self-care (01) ==
PROVIDERS: Emergency Provider Emergency Medicine; PCP Family Medicine
DX: J20.9 Acute bronchitis, unspecified (principal); J45.909 Unspecified asthma, uncomplicated; F17.200 Nicotine dependence, unspecified, uncomplicated
CPT/HCPCS: 71045; 80048; 83605; 85025; 87635; 94640; 94667; 96374; 99251; 99284; A4216; G0463; U0002

== ENCOUNTER 2021-06-18 09:57 | Emergency (ER) | payer OTHER, SELFPAY ==
[2021-06-18 10:00] VITALS: BP 104/52; PULSE 74; RESP 17; TEMP 36.8; O2SAT 98; BMI 24.7
[2021-06-18 10:04] VITALS: BP 104/52; PULSE 72; RESP 12; TEMP 36.8; O2SAT 96
--- NOTE | 2021-06-18 10:18 | EDS_ITS ---
HPI HPI - URI History of Present Illness Chief Complaint: Shortness of Breath Detail of Chief Complaint: Cough that started yesterday Informant: patient Narrative Narrative: Patient presents to the emergency department with a cough that started yesterday. Cough is really not productive. This morning she woke up and felt short of breath and noted that her home pulse ox was 85% on room air. Patient gave herself 2 aerosol breathing treatments. On arrival to the ER here she was 98% on room air. Patient states also she has had 5 watery stools this morning and 2 episodes of vomiting. She denies abdominal pain. She denies sick contacts although she does work at a [employer]. Patient has not been vaccinated against COVID-19. She denies fevers. She denies chest pain. Prior similar symptoms: No ROS ROS ED Constitutional Constitutional ED: Reports systems reviewed and no addt'l complaints, except as documented; Denies body ache(s), change in weight or chills Eyes Eyes: Denies acute decrease in peripheral vision, change in vision, double vision or loss of vision ENT ENT ED: Reports none; Denies ear pain, lip swelling, loss taste/smell, neck pain, otalgia or sore throat Cardiovascular Cardiovascular: Reports none; Denies abdominal pain, chest pain with activity, leg edema, lightheadedness, palpitations, rapid heart rate or syncope Respiratory/Chest Respiratory/Chest: Reports none, cough and dyspnea; Denies change in mental status, dry cough, hemoptysis, shortness of breath at rest or shortness of breath with exertion Gastrointestinal Gastrointestinal: Reports none, diarrhea, nausea and vomiting; Denies abdominal pain, change in stool character, hematemesis, hematochezia, melena or rectal bleeding Genitourinary Genitourinary ED: Reports none; Denies abdominal discomfort, anuria, dysuria, genital pain or polyuria Musculoskeletal Musculoskeletal: Reports none; Denies arthralgias, back pain, difficulty walking, extremity pain, muscle weakness or myalgias Integumentary Reports none; Denies abscess or rash Neurologic Neurologic: Reports none and headache(s); Denies abnormal gait, confusion, focal weakness, frequent falls, loss of vision, numbness, paresthesias, radicular pain, vertigo or weakness Psychiatric Psychiatric: Reports systems reviewed and no addt'l complaints, except as documented and none; Denies behavioral changes, confusion, difficulty concentrating, hallucinations, suicidal ideation, tactile hallucinations or visual hallucinations Endocrine Endocrinology: Denies none, cold intolerance, excessive sweating, fatigue or heat intolerance Hematologic/Lymphatic Hematologic/Lymphatic: Reports none; Denies anemia, easy bleeding or easy bruising Allergic/Immunologic Allergic/Immunologic ED: Denies as per HPI, none, lip swelling, mouth swelling, throat swelling, tongue swelling or hives PFSH PFSH Medical History Asthma Smoker Home Medications albuterol sulfate 2.5 mg INHALATION Q4H PRN #25 vial 09/01/19 [Rx Last Taken 09/10/19] albuterol sulfate 2 puff INHALATION Q4H PRN PRN #1 inhaler 09/11/19 [Rx Last Taken Unknown] prednisone 20 mg PO BID #6 tab 06/18/21 [Rx Last Taken Unknown] Allergy/AdvReac Type Severity Reaction Status Date / Time guaifenesin [From Mucinex] Allergy Anaphylaxis Verified 06/18/21 10:03 Social History Smoking Status: Current every day smoker tobacco type: cigarettes EXAM Physical Exam Const Vital Signs: 06/18/21 10:00 06/18/21 10:04 06/18/21 10:27 Temperature 98.3 F 98.3 F 98.3 F Temperature Source Oral Oral Oral Pulse Rate 74 72 61 Respiratory Rate 17 12 14 Respiratory Effort Respiratory Depth Respiratory Pattern Blood Pressure 104/52 L 104/52 L 104/52 L Blood Pressure Mean 69 69 69 Pulse Ox 98 96 96 Oxygen Delivery Method Room Air Room Air Room Air 06/18/21 10:28 Temperature Temperature Source Pulse Rate Respiratory Rate Respiratory Effort Normal Non-Labored Respiratory Depth Normal Respiratory Pattern Normal Blood Pressure Blood Pressure Mean Pulse Ox Oxygen Delivery Method Room Air Positive well nourished and well developed General Appearance ED: well developed and NAD HEENT Reports TM's clear and moist mucous membranes normocephalic and atraumatic; Negative for trauma or tenderness Tympanic Membrane ED: Yes TM's clear Eyes PERRL and EOMs intact bilaterally General Eye ED: Negative for pale conjunctiva or scleral icterus Neck no lymphadenopathy, supple and no JVD General: Negative for tenderness Chest Wall inspection of chest normal and palpation of chest normal Chest: Negative for tenderness Resp normal respiratory effort and clear to auscultation bilaterally Effort and Inspection: Negative for respiratory distress or pain with movement Auscultation: Negative for rhonchi, wheezes or diminished lung sounds Cardio regular rate, regular rhythm, S1 normal heart sound, S2 normal heart sound and no murmurs Peripheral Pulses: pulses 2+ throughout GI normal to inspection, nondistended, normoactive bowel sounds, soft to palpation, non-tender, non-distended and no masses Back/Spine no CVA tenderness and no thoracic nor lumbar tenderness Extremity normal to inspection General Extremety ED: Negative for edema General Extremity: Negative for edema Neuro oriented x3, CN's II-XII intact bilaterally, no sensory deficits noted and gait normal Sensorium / Orientation: awake, alert, oriented to person, oriented to place and oriented to time Motor Exam: strength 5/5 throughout and strength abnormal Psych mental status grossly normal Skin no rashes or lesions noted and no wounds MDM MDM MDM Narrative Medical decision making narrative: Patient's work-up unremarkable in the emergency department. Patient had a negative Covid screen and chest x-ray interpreted by myself as normal. She will be started on prednisone for 3 days at this point suspect she likely has a viral URI with reactive airway disease. She is to continue with her aerosols as needed. Patient to follow-up with primary care physician in 3 to 5 days. She is to return if increasing shortness of breath or condition worsen anyway. Radiography Diagnostic Testin view chest x-ray obtained interpreted by myself as normal without evidence of infiltrate or pneumothorax. Official report from radiology pending. Discharge Plan Triage Chief Complaint: Shortness of Breath ED Provider: Prosper Cannon Dx/Rx/DC Orders Clinical Impression: Asthmatic bronchitis Instructions: ED Bronchitis with Wheezing (Adult) Prescriptions: New prednisone 20 mg tablet 20 mg PO BID Qty: 6 RF: 0 No Action albuterol sulfate 2.5 MG/3 ML solution for nebulization 2.5 mg inhalation Q4H PRN Qty: 25 RF: 0 albuterol sulfate 1 PUFF inhaler 2 puff inhalation Q4H PRN PRN (Reason: Wheezing) Qty: 1 RF: 0 Primary Care Provider: Issac Jurado Referrals: Issac Jurado MD [Primary Care Provider] - 3-5 Days Disposition Disposition: Home, Self Care
[2021-06-18 10:27] VITALS: BP 104/52; PULSE 61; RESP 14; TEMP 36.8; O2SAT 96
[2021-06-18 10:28] VITALS: O2SAT 96
--- NOTE | 2021-06-18 10:33 | RAD_ITS ---
STUDY: X-RAY CHEST REASON FOR EXAM: Female, 41 years old. Fever and cough TECHNIQUE: Single AP portable view of the chest. COMPARISON: 10/03/2020 FINDINGS: EKG leads overlie the chest The lungs are clear and expanded. There is no demonstrated pleural abnormality. Normal size heart. Normal mediastinum and oliverio. Normal visualized pulmonary arteries. Normal visualized aortic arch and descending thoracic aorta. Normal visualized thoracic spine. Normal visualized ribs, clavicles, and shoulders. There is no demonstrated abnormality of the visualized soft tissue structures of the upper abdomen. RAD/Chest 1 View (Portable) IMPRESSION: Normal x-ray examination of the chest. Electronically Signed: Berto Jennings MD at 11:06 EDT , Service support ,
[2021-06-18 10:58] VITALS: BP 101/58; PULSE 84; RESP 15; O2SAT 98
[2021-06-18] MEDS: predniSONE 20 MG Tablet 40 MG PO (11:04)
== END 2021-06-18 11:12 | disposition home or self-care (01) ==
PROVIDERS: Emergency Provider Emergency Medicine; PCP Family Medicine
DX: J45.909 Unspecified asthma, uncomplicated (principal); F17.210 Nicotine dependence, cigarettes, uncomplicated
CPT/HCPCS: 71045; 87426; 99283

== ENCOUNTER 2021-09-02 12:01 | Emergency (ER) | payer OTHER, SELFPAY ==
[2021-09-02 12:01] VITALS: BP 106/68; PULSE 62; RESP 18; TEMP 36.9; O2SAT 97; BMI 23.5
--- NOTE | 2021-09-02 12:05 | RAD_ITS ---
STUDY: X-RAY CHEST REASON FOR EXAM: Female, 41 years old. Cough and body aches. TECHNIQUE: Single AP portable view of the chest. COMPARISON: Comparison is made with prior study dated 06/18/2021. FINDINGS: The lungs are clear and expanded. There is no demonstrated pleural abnormality. Normal size heart. Normal mediastinum and oliverio. Normal visualized pulmonary arteries. Normal visualized aortic arch and descending thoracic aorta. Normal visualized thoracic spine. Normal visualized ribs, clavicles, and shoulders. There is no demonstrated abnormality of the visualized soft tissue structures of the upper abdomen. RAD/Chest 1 View IMPRESSION: Normal x-ray examination of the chest. Electronically Signed: Alfredo Trevino MD at 12:33 EDT , Service support ,
--- NOTE | 2021-09-02 15:12 | EX.ED.DYSGE1 ---
HPI History of Present Illness Chief Complaint: Cold Sx Narrative Narrative: Patient is a 41-year-old female with history of COPD. 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 She states she had congestion cough and fatigue for about 5 days. She states she did test recently for Covid and was negative. She states despite the negative test she feels her symptoms are worsening and she is concerned she may have pneumonia and therefore comes in for evaluation [facility] PFS Medical History Asthma Smoker Home Medications albuterol sulfate 2.5 mg INHALATION Q4H PRN #25 vial 09/01/19 [Rx Last Taken 09/10/19] albuterol sulfate 2 puff INHALATION Q4H PRN PRN #1 inhaler 09/11/19 [Rx Last Taken Unknown] prednisone 20 mg PO BID #6 tab 06/18/21 [Rx Last Taken Unknown] dexamethasone [Decadron] 6 mg PO DAILY #10 tab 09/02/21 [Rx Last Taken Unknown] promethazine-codeine 5 ml PO Q6H PRN 7 Days #140 ml 09/02/21 [Rx Last Taken Unknown] Allergy/AdvReac Type Severity Reaction Status Date / Time guaifenesin [From Mucinex] Allergy Anaphylaxis Verified 06/18/21 10:03 Social History Smoking Status: Current every day smoker tobacco type: cigarettes ROS ROS ED Constitutional Constitutional ED: Reports chills, fever(s) and subjective ENT ENT ED: Reports rhinorrhea and sore throat Cardiovascular Cardiovascular: Denies chest pain Respiratory/Chest Respiratory/Chest: Reports cough and dyspnea Gastrointestinal Gastrointestinal: Denies abdominal pain, diarrhea, nausea or vomiting Genitourinary Genitourinary ED: Denies dysuria Musculoskeletal Musculoskeletal: Reports myalgias Integumentary Denies rash Neurologic Neurologic: Denies headache(s) Hematologic/Lymphatic Hematologic/Lymphatic: Denies easy bleeding or easy bruising EXAM Physical Exam Const Vital Signs: 09/02/21 12:01 Temperature 98.4 F Temperature Source Temporal Pulse Rate 62 Respiratory Rate 18 Blood Pressure 106/68 Blood Pressure Mean 80 Pulse Ox 97 Oxygen Delivery Method Room Air Positive well nourished and well developed General Appearance ED: well developed HEENT Reports moist mucous membranes HEENT Narrative: Cobblestoning the posterior pharynx consistent with sinus drainage but no airway edema or compromise Eyes PERRL and EOMs intact bilaterally Neck supple Neck Narrative: Positive anterior cervical lymphadenopathy noted Chest Wall palpation of chest normal Resp normal respiratory effort Resp Narrative: Sounds are diminished throughout with diffuse expiratory wheeze and rhonchi in bilateral bases. However no signs of respiratory distress Cardio regular rate and regular rhythm GI non-tender, non-distended and no masses Auscultation: normoactive bowel sounds Palpation: soft Extremity normal to inspection Extremity Narrative: No asymmetric edema no pitting edema negative Homans' sign bilaterally Neuro oriented x3 and CN's II-XII intact bilaterally Sensorium / Orientation: alert Psych mental status grossly normal Skin no rashes or lesions noted MDM MDM MDM Narrative Medical decision making narrative: Patient presented to the ER afebrile satting in the high 90s on room air and in no acute respiratory distress. With her symptoms and concern for pneumonia chest x-ray was obtained which revealed no acute infiltrate. She already tested negative for Covid the rapid test but her symptoms and exposure are concerning for this so a PCR test will be obtained at this time. However as patient does not have signs of respiratory distress or need for supplemental oxygen she does not need to wait for that test and is safe for discharge Radiography Diagnostic Testing: Clinical Impression(s) from Imaging Studies Chest X-Ray 09/02/21 12:05 IMPRESSION: Normal x-ray examination of the chest. Electronically Signed: Alfredo Trevino MD at 12:33 EDT , Service support , Discharge Plan Triage Chief Complaint: Cold Sx ED Provider: Kevin Bonds Dx/Rx/DC Orders Clinical Impression: Viral upper respiratory illness Instructions: ED URI, Viral W/ Wheezing (Adult) Prescriptions: New dexamethasone [Decadron] 6 mg tablet 6 mg PO DAILY Qty: 10 RF: 0 promethazine-codeine 6.25-10 mg/5 mL syrup 5 ml PO Q6H PRN (Reason: cough) 7 Days Qty: 140 RF: 0 No Action albuterol sulfate 2.5 MG/3 ML solution for nebulization 2.5 mg inhalation Q4H PRN Qty: 25 RF: 0 albuterol sulfate 1 PUFF inhaler 2 puff inhalation Q4H PRN PRN (Reason: Wheezing) Qty: 1 RF: 0 prednisone 20 mg tablet 20 mg PO BID Qty: 6 RF: 0 Primary Care Provider: Issac Jurado Referrals: Issac Jurado MD [Primary Care Provider] - Disposition Disposition: Home, Self Care
[2021-09-02 18:05] LABS: Probe Check PASS
== END 2021-09-02 16:30 | disposition home or self-care (01) ==
PROVIDERS: Emergency Provider Emergency Medicine; PCP Family Medicine
DX: U07.1 COVID-19 (principal); J06.9 Acute upper respiratory infection, unspecified; J44.9 Chronic obstructive pulmonary disease, unspecified; F17.210 Nicotine dependence, cigarettes, uncomplicated; Z20.822 Contact with and (suspected) exposure to COVID-19
CPT/HCPCS: 71045; 87635; 99282; U0005; U0003

== ENCOUNTER 2022-11-12 19:54 | Emergency (ER) | payer OTHER, SELFPAY ==
[2022-11-12 19:55] VITALS: BP 95/69; PULSE 97; RESP 20; TEMP 36.8; O2SAT 94; BMI 21.3
--- NOTE | 2022-11-12 20:04 | RAD_ITS ---
INDICATION: SOB EXAMINATION/TECHNIQUE: X-RAY - XR Chest 1 View COMPARISON: 09/02/2021. FINDINGS: The lungs are clear. Tortuous and calcified thoracic aorta. The heart is not enlarged. No pleural effusion or pneumothorax. No acute osseous abnormalities. RAD/Chest 1 View IMPRESSION: No acute radiographic abnormalities. Electronically Signed: Tushar Myers MD at 20:17 EST ,
[2022-11-12 20:30] LABS: Absolute Lymphocyte Count 0.76 X10^3/uL (0.83-4.51); Absolute Neutrophil Count 3.7 X10^3/uL (2.0-7.7); Basophil# 0.01 X10^3/uL; Basophil% 0.2 % (0-1); Eosinophil# 0.02 X10^3/uL; Eosinophils% 0.4 % (0-5); Hematocrit 48.1 % (37-47); Hemoglobin 15.4 g/dL (12.0-15.0); Lymphocyte # 0.76 X10^3/ul (0.83-4.51); Lymphocyte % 15.9 % (19-41); Mean Corpuscular Hgb 31.1 pg (27.0-32.0); Mean Corpuscular Volume 97.2 fL (81-99); Mean Platelet Vol. 11.1 fl (6.2-12.0); Monocyte# 0.28 X10^3/uL; Monocyte% 5.9 % (0-10); NRBC Flagged by Analyzer 0 % (0-5); Neutrophil % 77.4 % (47-70); Platelet Count 156 K/mm3 (150-450); RBC Distribution Width CV 13.1 % (11.6-14.6); RBC Distribution Width SD 46.6 fl (35.1-43.9); Red Blood Count 4.95 M/mm3 (4.2-5.4); White Blood Count 4.8 K/mm3 (4.4-11.0)
[2022-11-12 20:56] LABS: Anion Gap 5 (5-15); BUN 15 mg/dL (7-18); BUN/Creat Ratio 17.1 RATIO (10-20); Calcium,Total 8.9 mg/dL (8.5-10.1); Chloride 103 mmol/L (98-107); Creatinine, Serum 0.88 mg/dL (0.55-1.02); EST Glomerular Filtration Rate 74 mL/min (>60); Est Glom Filt Rate - Afr Amer 90 mL/min (>60); Estimated Creatinine Clearance 77.17 ml/min; Glucose 115 mg/dL (74-106); Potassium 4.1 mmol/L (3.5-5.1); Sodium Level 136 mmol/L (136-145)
[2022-11-12 21:18] VITALS: O2SAT 97
[2022-11-12 22:07] VITALS: O2SAT 94
--- NOTE | 2022-11-12 22:10 | ED.VIS.DYS ---
HPI History of Present Illness Chief Complaint: Shortness of Breath Narrative Narrative: 42-year-old female past medical history of asthma and chronic bronchitis, presents with URI type symptoms that she has had over the last 4 days. States she got sick on Wednesday. She had nausea, vomiting, and diarrhea that has improved but her main concern is that she had cough, shortness of breath, and burning in her chest. She has been using her albuterol but she is still short of breath. She is a smoker but has not smoked cigarettes since Wednesday. PFSH PFS Medical History Asthma Smoker Home Medications albuterol sulfate 2.5 mg/3 mL (0.083 %) solution for nebulization 2.5 mg (3 mL) inhalation Q4H PRN #25 vials 09/01/19 [Rx Last Taken 09/10/19] albuterol sulfate 90 mcg/actuation aerosol inhaler 2 puff inhalation Q4H PRN PRN Wheezing ##1 09/11/19 [Rx Last Taken Unknown] prednisone 20 mg tablet 20 mg PO BID #6 tabs 06/18/21 [Rx Last Taken Unknown] dexamethasone 6 mg tablet (Decadron) 6 mg PO DAILY #10 tabs 09/02/21 [Rx Last Taken Unknown] promethazine 6.25 mg-codeine 10 mg/5 mL syrup 5 ml PO Q6H PRN cough 7 days #140 mL 09/02/21 [Rx Last Taken Unknown] prednisone 20 mg tablet 40 mg PO DAILY 7 days #14 tabs 11/12/22 [Rx Last Taken Unknown] Allergy/AdvReac Type Severity Reaction Status Date / Time guaifenesin [From Mucinex] Allergy Anaphylaxis Verified 11/12/22 19:57 Social History Smoking Status: Current every day smoker tobacco type: cigarettes ROS ROS ED ROS Narrative Constitutional: No fever, no chills. HEENT: No sore throat. No neck pain. No loss of vision. No rhinorrhea. Cardiovascular: No chest pain. Positive burning in chest. No palpitations. No pedal edema. Respiratory: Positive cough, positive shortness of breath. Abdominal: No abdominal pain. Positive nausea, vomiting, and diarrhea-resolved. Genitourinary: No dysuria. No hematuria. Musculoskeletal: Positive myalgias, especially with coughing. No arthralgias. Neurologic: No headaches. No dizziness. No lightheadedness. Skin: No rash. No change in color. Psychiatric: No depression. No anxiety. EXAM Physical Exam Narrative Exam Narrative: Afebrile. Vital signs noted. HEENT: Normocephalic. Atraumatic. PERRL, EOMI. Neck soft and supple. No point tenderness or step off. Cardiovascular: Regular rate and rhythm. No murmurs, rubs, or gallops appreciated. Respiratory: No tachypnea. Diffuse rhonchi with occasional expiratory wheeze. No respiratory distress. No accessory muscle use. Speaking in full sentences. Gastrointestinal: Abdomen soft, nontender, with normoactive bowel sounds. No rebound or guarding. Neurological: Awake. Alert. Nonfocal, nonlateralizing. Skin: No rash. Normal color. No pallor. Musculoskeletal: No pedal edema. Full range of motion extremities. Const Vital Signs: 11/12/22 19:55 11/12/22 21:18 11/12/22 21:18 Temperature 98.2 F Temperature Source Temporal Pulse Rate 97 Respiratory Rate 20 H Respiratory Effort Respiratory Depth Respiratory Pattern Blood Pressure 95/69 Blood Pressure Mean 77 Pulse Ox 94 97 Oxygen Delivery Method Room Air Room Air Room Air 11/12/22 21:18 Temperature Temperature Source Pulse Rate Respiratory Rate Respiratory Effort Normal Respiratory Depth Normal Respiratory Pattern Normal Blood Pressure Blood Pressure Mean Pulse Ox Oxygen Delivery Method Room Air MDM MDM MDM Narrative Medical decision making narrative: Nursing protocol labs were obtained. CBC shows normal white count of 4.8, hemoglobin stable at 15.4 with hematocrit 48.1. Normal platelet count of 156. Electrolyte panel is significant for glucose of 115 with an anion gap of 5. Chest x-ray interpreted by myself shows no acute process. Pulse ox is 97% on room air. She states she has albuterol nebulizers at home that she will use every 4-6 hours as needed. Smoking cessation was discussed. She was given a loading dose of prednisone 60 mg here and a burst for the next 7 days of 40 mg. 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 I feel she can be discharged safely home with follow-up. Return instructions to the emergency department were reviewed. Disposition is discharged home in stable condition. Lab Data Attestation: I reviewed the patient's lab results. Labs: Laboratory Results - last 24 hr 11/12/22 11/12/22 20:15 20:15 WBC 4.8 RBC 4.95 Hgb 15.4 H Hct 48.1 H MCV 97.2 MCH 31.1 MCHC 32.0 RDW Std Deviation 46.6 H RDW Coeff of Karime 13.1 Plt Count 156 MPV 11.1 Immature Gran % (Auto) 0.200 Neut % (Auto) 77.4 H Lymph % (Auto) 15.9 L [place] % (Auto) 5.9 Eos % (Auto) 0.4 Baso % (Auto) 0.2 Absolute Neuts (auto) 3.7 Absolute Lymphs (auto) 0.76 L Nucleated RBC % 0 Sodium 136 Potassium 4.1 Chloride 103 Carbon Dioxide 28.0 Anion Gap 5 BUN 15 Creatinine 0.88 Estim Creat Clear Calc 77.17 Est GFR (MDRD) Af Amer 90 Est GFR (MDRD) Non-Af 74 BUN/Creatinine Ratio 17.1 Glucose 115 H Calcium 8.9 Radiography Diagnostic Testing: Clinical Impression(s) from Imaging Studies Chest X-Ray 11/12/22 20:04 IMPRESSION: No acute radiographic abnormalities. Electronically Signed: Tushar Myers MD at 20:17 EST , Discharge Plan Triage Chief Complaint: Shortness of Breath ED Provider: Jorje Fuchs Dx/Rx/DC Orders Clinical Impression: Asthmatic bronchitis, URI (upper respiratory infection) Instructions: ED Bronchitis with Wheezing (Adult) Prescriptions: New prednisone 20 mg tablet 40 mg PO DAILY 7 Days Qty: 14 0RF No Action albuterol sulfate 2.5 MG/3 ML solution for nebulization 2.5 mg inhalation Q4H PRN Qty: 25 0RF Rx Instructions: Use q4 hours and PRN for wheezing albuterol sulfate 1 PUFF inhaler 2 puff inhalation Q4H PRN PRN (Reason: Wheezing) Qty: 1 0RF prednisone 20 mg tablet 20 mg PO BID Qty: 6 0RF dexamethasone [Decadron] 6 mg tablet 6 mg PO DAILY Qty: 10 0RF promethazine-codeine 6.25-10 mg/5 mL syrup 5 ml PO Q6H PRN (Reason: cough) 7 Days Qty: 140 0RF Primary Care Provider: Sherry Sorenson Referrals: Sherry Sorenson, DO [Primary Care Provider] - 3-5 Days if not improving Activity Restrictions/Additional Instructions: Stop smoking. Take medication as directed. Continue your albuterol aerosolized treatments every 4-6 hours while awake as needed for shortness of breath and wheezing. Disposition Disposition: Home, Self Care
[2022-11-12] MEDS: predniSONE 20 MG Tablet 60 MG PO (22:18)
== END 2022-11-12 22:25 | disposition home or self-care (01) ==
PROVIDERS: Emergency Provider Emergency Medicine; PCP Internal Medicine; Visit Provider Emergency Medicine
DX: J06.9 Acute upper respiratory infection, unspecified (principal); R19.7 Diarrhea, unspecified; J45.909 Unspecified asthma, uncomplicated; R11.2 Nausea with vomiting, unspecified; F17.210 Nicotine dependence, cigarettes, uncomplicated; R06.02 Shortness of breath; Z79.52 Long term (current) use of systemic steroids; Z20.822 Contact with and (suspected) exposure to COVID-19
CPT/HCPCS: 71045; 80048; 85025; 87811; 94760; 99283; A4216

== ENCOUNTER 2022-12-27 10:46 | Inpatient (IN) | payer OTHER, SELFPAY ==
[2022-12-27] VITALS (11 sets, daily range): BP systolic 105–113; BP diastolic 62–71; PULSE 88–100; RESP 18–22; TEMP 36.7–36.8; O2SAT 89–96; BMI 23.6
--- NOTE | 2022-12-27 10:55 | PCM.HP.STD ---
[facility] - General General Date of Admission: 12/27/22 Date of Service: 12/27/22 Chief Complaint: shortness of breath HPI Narrative JO SIMON, is a 42 F with a past medical history as outlined which includes asthma and chronic nicotine dependence. He she was admitted as a direct transfer from [facility] in [facility] where she had presented with a complaint of shortness of breath. Patient states since she has been in the hospital at least 4 times on account of recurrent shortness of breath. She has presented to multiple emergency rooms and urgent care centers with similar complaints of shortness of breath. She says she was diagnosed with bronchitis and discharged home on prednisone the first time. She completed a course of prednisone and the shortness of breath recurred. She subsequently went to an urgent care center and was placed on Tamiflu after she was diagnosed with influenza. She completed a course of Tamiflu and another prednisone taper and the shortness of breath recurred so she went back to the ED. At the ED she was again given prednisone and breathing treatments as well as an inhaler and referred to pulmonology. She states she had an outpatient pulmonary function test and was due to see pulmonology-Dr. Shin tomorrow. However today she says she felt acutely short of breath in the night and checked her oxygen and saturation levels. She was saturating down in the 70s and so she called the EMS and went to the emergency room [facility] in hospital. She denies any cough, chest pain or palpitations, fever or chills or dizziness or lightheadedness. She does admit to wheezing. Review of systems otherwise negative. Patient has a history of childhood asthma for which she uses inhalers. Patient also smokes heavily and has been smoking a pack a day for the past 13 years and says she is not interested in quitting. She states she had similar symptoms such as these in 2013 and after multiple visits to the ER she says she was diagnosed with mycoplasma pneumonia. Records were reviewed and in 2012 she was seen by Dr. Machelle krause in the hospital and per his note he had a high suspicion for mycoplasma pneumonia. Patient states that she did test positive for mycoplasma by the lab records in the EMR do not appear to go back to 2013 so its not possible to clarify this. Vitals in the ED with respiratory rate of 18, patient was on 3 L of oxygen. She was 98.1 Fahrenheit and pulse rate was 94. She was saturating 96% on 3 L of oxygen. CBC and BMP were ordered and troponin was negative. CBC and BMP done at outside hospital showed no acute pathology. She did have a CTA of the chest done at outside hospital which was negative for PE but did show no evidence of consolidation, pleural effusion or pneumothorax and showed a normal heart size. It shows centrilobular emphysema and mild bronchial wall thickening consistent with bronchiolitis as well as calcified splenic granulomata. She has been admitted to be managed for hypoxia likely due to probable COPD exacerbation with underlying interstitial pneumonitis. Of note, patient denies any exposure to asbestos. 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 [facility] Medical History Asthma Smoker Home Medications albuterol sulfate 2.5 mg/3 mL (0.083 %) solution for nebulization 2.5 mg (3 mL) inhalation Q4H PRN #25 vials 09/01/19 [Rx Last Taken 12/27/22] albuterol sulfate 90 mcg/actuation aerosol inhaler 2 puff inhalation Q4H PRN PRN Wheezing ##1 09/11/19 [Rx Last Taken 12/27/22] Allergy/AdvReac Type Severity Reaction Status Date / Time guaifenesin [From Mucinex] Allergy Anaphylaxis Verified 11/12/22 19:57 Family History (Updated 12/27/22 @ 11:09 by Barbie Hendricks) Other Adrenal cancer Hypertension Thyroid cancer Surgical History (Updated 12/27/22 @ 11:08 by Barbie Hendricks) H/O dilation and curettage Social History Smoking Status: Current every day smoker tobacco type: cigarettes ROS Constitutional Constitutional: Reports fatigue and weakness; Denies anorexia, chills or fever(s) Eyes Eyes: Denies change in vision ENT HEENT: Denies dysphagia, nasal congestion, nasal discharge or sore throat Cardiovascular Cardiovascular: Reports dyspnea on exertion; Denies chest pain, edema, lightheadedness, orthopnea, palpitations, paroxysmal nocturnal dyspnea, rapid heart rate or syncope Respiratory/Chest Respiratory/Chest: Reports cough, dyspnea, shortness of breath at rest, shortness of breath with exertion and wheezing; Denies excessive phlegm production, hemoptysis or productive cough Gastrointestinal Gastrointestinal: Denies abdominal pain, diarrhea, dyspepsia, nausea or vomiting Genitourinary Genitourinary: Denies dysuria Musculoskeletal Musculoskeletal: Denies arthralgias Neurologic Neurologic: Denies confusion, dizziness, focal weakness, headache(s), numbness, seizure-like activity or seizures Psychiatric Psychiatric: Denies anxiety or depression Endocrine Endocrinology: Denies change in body appearance Physical Exam Const alert, oriented x3 and no apparent distress General Appearance: cooperative HEENT normocephalic, head/scalp atraumatic, hearing grossly normal bilaterally and moist oral mucous membranes Mouth: oral and palatal mucosa normal Eyes PERRL, EOMs intact bilaterally and conjunctivae normal Neck no lymphadenopathy, supple and no JVD Resp Resp Narrative: mildly diminished breath sounds bibasally, few crackles. Mild expiratory wheezing bilaterally. On 4L of oxygen by nasal canula Cardio regular rate, regular rhythm, S1 normal heart sound, S2 normal heart sound and no murmurs GI normal to inspection, nondistended, normoactive bowel sounds, soft to palpation, non-tender and non-distended Extremity normal to inspection, full ROM and no clubbing, cyanosis or edema Neuro oriented x3 and CN's II-XII intact bilaterally Sensorium / Orientation: awake and alert Motor Exam: strength 5/5 throughout Psych affect normal Assessment & Plan Assessment/Plan (1) Acute respiratory failure with hypoxia: (2) COPD exacerbation: PLAN: Plan #Acute hypoxic respiratory failure due to probable COPD exacerbation admit to PCU CT of the chest done showed no evidence of PE; done at [facility], and report in chart. place on IV solumedrol 40mg q8hrly. consult pulmonology says she had PFTs; records not available in system. says she had similar presentation back in 2012, and was diagnosed with Mycoplasma pneumonia. hydrate gently with IVF #Nicotine dependence has a 30 pack year smoking history, and says she is not interested in quitting. nicotine patch 21mg daily. #Asthma: on albuterol. breathing treatment with bronchodilators. DVT prophylaxis; lovenox Code status: full code Patient counseled extensively about different types of CODE STATUS including full code, DNR CCA and DNR CCA. Patient elects to be full code. Total [id number]-[id number] time 17 minutes. Charges/Coding Visit Charges Inpatient E&M: 41234 Init Hosp L3 Procedures Hospitalists Procedures: 74822 Advncd Care Plan 30 Min
[2022-12-27 11:33] LABS: Troponin-I HS 27 pg/mL (3.0-54.0)
[2022-12-27] MEDS: 0.9% Normal Saline 1,000 ML 100 ML IV (13:00)
[2022-12-27] MEDS: Acetaminophen 325 MG Tablet 650 MG PO ×2 (13:01→20:15)
[2022-12-27 13:19] LABS: Troponin-I HS 21 pg/mL (3.0-54.0)
[2022-12-27] MEDS: Ensure Plus High Protein 120 ML LIQUID PO ×2 (14:41→17:13)
[2022-12-27] MEDS: Ipratropium/Albuterol Sulfate 3 ML AMPUL.NEB INHALATION ×3 (15:14→23:18)
[2022-12-27] MEDS: Ipratropium 0.5 MG/2.5 ML SOLUTION INHALATION (16:15)
--- NOTE | 2022-12-27 16:39 | EX.PCM.CONCC ---
Assessment & Plan Assessment/Plan (1) Status asthmaticus: (2) Acute on chronic respiratory failure with hypoxia and hypercapnia: (3) Allergic rhinitis due to allergen: (4) Nicotine addiction: PLAN: Plan 1. Severe, persistent, uncontrolled asthma, with 3 severe exacerbations since influenza A in early November., Which was due to exposure to sick grandchildren. Unfortunately, she has had only short courses of prednisone and no inhaled corticosteroid after each of these exacerbations, and has never been managed with inhaled corticosteroid until 2 weeks ago. Unfortunately, she still smokes and may not be ready to quit yet. She became tearful when we discussed smoking cessation today, so I concentrated on her asthma management. Her current presentation and situation is worrisome. She still has severe, tight, bilateral wheezing, with poor air movement, use of accessory muscle, tripod position, and 3 recent hospitalizations for asthma exacerbations. I recommend the following: - She required a stat nebulizer treatment for severe uncontrolled asthma while I was with her this afternoon. - Solu-Medrol 40 mg IV every 8 hours until her peak flow goes to greater than 200. This may well require several days in the hospital as an inpatient. - Every 4 hour nebulizers [id number] with bronchodilator - She may continue her Symbicort 2 puffs twice a day - Introduce a spacer and show her how to use it, and should be used whenever she has Symbicort or another inhaled steroid. - Have her record her peak flow 2-3 times daily while she is an inpatient, to get her used to doing this and also to help her follow her asthma and provide information to Dr. Shni when she returns to his clinic. This should continue into the outpatient setting. - I coached her on correct inhaler technique today. She inhales too fast. - Frequent asthma education, appropriate for her stage of asthma, with eventual development of a personal asthma action plan - Avoid triggers for asthma, which should be adjusted based on her RAST results. - Routine immunizations, her stated that she has already had 3 shots for COVID and a flu shot this year. 2. Probable allergic rhinitis/sinusitis, eosinophilia of 10.3%, rule out sinus opacification - CT sinuses in the morning - RAST for [place] antigens - Total serum IgE, now and repeat as an outpatient -Atrovent nasal spray 3. Nicotine addiction, heavy - Nicotine patches while in inpatient - Consult the smoking cessation team - Discharge her with smoking cessation medications including Chantix starter pack with 1 refill if she has no history of suicidal attempt or ideation. That way she can use it when she is ready to make a quit attempt HPI Consult Data Date of Consult: 12/27/22 HPI Narrative Reason for Consultation: Acute on chronic aspiration of COPD and allergic asthma HPI Narrative: JO SIMON, is a 42 F who presents as a direct transfer from [facility] where she presented with her third severe asthma/COPD exacerbation since November. She presented to [facility] with a blood gas of 7.22 PCO2 is 66 PO2 108, eosinophil count of 10.3 with normal lactate troponin and EKG except for sinus tachycardia. Her influenza a and B and COVID were negative. She reported that her influenza was positive in November and she has received Levaquin, Tamiflu, amoxicillin, and azithromycin since November. She also had 2-3 short courses of prednisone but has never been on an inhaled steroid until she started Symbicort from Dr. Jorge Butterfield 2 weeks ago. She has asthma since the third grade, and has only used her rescue inhaler as needed. She was never hospitalized until 10 years ago when she was eventually found to have mycoplasma pneumonia. She then saw Dr. Mclean at [facility] for 5 years and her asthma gradually came under better control. However, she does not recall being on an inhaled steroid for her lifetime. She has an albuterol inhaler and nebulizer that she uses as needed, has been on prednisone 2-3 times in her lifetime before November, used a peak flow meter during childhood but none recently, and does recall the red-yellow and green zones and recalls that she should go to the ER if her peak flow was 100. (It was probably set too low unless she was a child). She wheezes every day, and uses her inhaler at night frequently. Her sleep has been poor. She has been a chronic 2 pack/day smoker, and has made several attempts to quit in the past, the most successful being for 2 weeks. She has always quit cold turkey and never used any smoking cessation medications. She returned to smoking because of stress. 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 She has no other recent exposures. She believes she has allergies but has never been tested to her recollection. She also has chronic headaches and sinus congestion but has never been on a nasal inhaler or had a sinus CT scan to her recollection. Her eosinophils are elevated at 10.3% on her CBC at [facility]. She does not recall an IgE, and her last pulmonary function test was recently. 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 Shin as an outpatient tomorrow. She will see him in the hospital instead. No other known triggers, or pulmonary irritants. [facility] Medical History (Updated 12/27/22 @ 17:[address] Harsh Marie MD) Acute on chronic respiratory failure with hypoxia and hypercapnia Allergic rhinitis due to allergen Asthma Nicotine addiction Smoker Status asthmaticus Home Medications albuterol sulfate 2.5 mg/3 mL (0.083 %) solution for nebulization 2.5 mg (3 mL) inhalation Q4H PRN #25 vials 09/01/19 [Rx Last Taken 12/27/22] albuterol sulfate 90 mcg/actuation aerosol inhaler 2 puff inhalation Q4H PRN PRN Wheezing ##1 09/11/19 [Rx Last Taken 12/27/22] Allergy/AdvReac Type Severity Reaction Status Date / Time guaifenesin [From Mucinex] Allergy Anaphylaxis Verified 11/12/22 19:57 Family History Other Adrenal cancer Hypertension Thyroid cancer Surgical History H/O dilation and curettage Social History Smoking Status: Current every day smoker tobacco type: cigarettes ROS ROS Narrative Prolonged headaches and sinus congestion. Constitutional Constitutional: Reports headache(s); Denies body ache(s), chills, fatigue or weakness ENT HEENT: Reports dizziness, headache(s) and nasal congestion; Denies epistaxis Respiratory/Chest Respiratory/Chest: Reports chest tightness, cough, shortness of breath with exertion and wheezing; Denies hemoptysis Gastrointestinal Gastrointestinal: Denies abdominal pain Musculoskeletal Musculoskeletal: Denies arthralgias Integumentary Integumentary: Denies lesions or rash Neurologic Neurologic: Denies syncope Physical Exam Narrative Well-developed well-nourished in mild respiratory distress, sitting in a tripod position. HEENT: No thrush, piercing in her tongue. I did not examine ears TMs. Chest has inspiratory and expiratory wheezes in all lung nassar, diminished, prolonged expiratory phase, symmetrical chest, and positive use of accessory muscles to exhale. Heart normal S1-S2 no murmurs rubs or gallops. Abdomen is soft nontendr Extremities have no clubbing cyanosis or edema, IVs are intact. Neuro psych was pleasant, good understanding, no focal, cranial nerves intact. Medical Records Data Attestation: I reviewed the patient's medical records Medical records narrative: From [facility] prior to this admission, and her EMR here Medical Nutrition Assessment Dietitian: Malnutrition Criteria Met Start: 12/27/22 12:54 Freq: Status: Active Protocol: Document 12/27/22 12:54 AG (Rec: 12/27/22 12:54 AG [id number]) Nutrition Malnutrition Evidence of Malnutrition Exists Yes Malnutrition (moderate): Chronic Evidenced By Suboptimal Energy Intake ( Moderate),Weight Loss ( Moderate),Physical Changes ( Mild) Clinical Problem Chronic Disease or Condition Related Malnutrition Etiology chronic, moderate malnutrition related to inadequate energy intake w/ increased energy needs d/t asthma/COPD Signs/Symptoms as evidenced by reported unintentional wt loss of 25#/ 16% wt loss over 6 months; Mild muscle wasting/fat loss evident per physical exam in orbital, clavicle, acromion, and temporal areas; estimated PO intake meeting <75% of estimated energy needs > 1 month Status Active Problem Recommendation Dietitian Recommendations/Changes continue regular diet as tolerated; will add 120mL ensure plus high protein 4x/ day w/medpass for additional calories/protein if consumed. Lab / Micro Data Attestation: I reviewed the patient's lab results. Lab results narrative: At [facility], EKG was sinus tachycardia, white count 14,000, hemoglobin 14, platelets 346,000, eosinophils 10.3%, glucose 147, lactate normal, troponin 14.5. ABG 7.22 PCO2 66 PO2 108. At [facility], COVID was negative, influenza a and B were negative. Labs: Laboratory Results - last 24 hr 12/27/22 11:10: Troponin I High Sens 27 12/27/22 12:52: Troponin I High Sens 21 Charges/Coding Visit Charges Inpatient E&M: 58167 Init Hosp L3
[2022-12-27 17:21] LABS: Troponin-I HS 12 pg/mL (3.0-54.0)
[2022-12-27] MEDS: 0.9% Saline Lock 10 ML Syringe IV (21:55)
[2022-12-28] VITALS (17 sets, daily range): BP systolic 110–112; BP diastolic 62–74; PULSE 59–92; RESP 16–24; TEMP 36.6–36.8; O2SAT 86–99
[2022-12-28] MEDS: Ipratropium/Albuterol Sulfate 3 ML AMPUL.NEB INHALATION ×6 (03:15→23:50)
[2022-12-28] MEDS: 0.9% Saline Lock 10 ML Syringe IV ×3 (05:33→21:19)
[2022-12-28 06:25] LABS: Absolute Lymphocyte Count 1.29 X10^3/uL (0.83-4.51); Absolute Neutrophil Count 8.8 X10^3/uL (2.0-7.7); Basophil# 0.01 X10^3/uL; Basophil% 0.1 % (0-1); Eosinophil# 0.02 X10^3/uL; Eosinophils% 0.2 % (0-5); Hematocrit 41.3 % (37-47); Lymphocyte # 1.29 X10^3/ul (0.83-4.51); Lymphocyte % 12.3 % (19-41); Mean Corp Hgb Conc 31.5 g/dL (32-36); Mean Corpuscular Hgb 31.8 pg (27.0-32.0); Mean Platelet Vol. 10.7 fl (6.2-12.0); Monocyte# 0.27 X10^3/uL; Monocyte% 2.6 % (0-10); NRBC Flagged by Analyzer 0 % (0-5); Neutrophil # 8.79 X10^3/uL (2.7-7.7); Neutrophil % 84.1 % (47-70); Platelet Count 274 K/mm3 (150-450); RBC Distribution Width CV 14.3 % (11.6-14.6); RBC Distribution Width SD 53.1 fl (35.1-43.9); Red Blood Count 4.09 M/mm3 (4.2-5.4); White Blood Count 10.5 K/mm3 (4.4-11.0)
[2022-12-28 06:51] LABS: Anion Gap 5 (5-15); BUN 11 mg/dL (7-18); BUN/Creat Ratio 20.3 RATIO (10-20); Calcium,Total 8.5 mg/dL (8.5-10.1); Chloride 111 mmol/L (98-107); Creatinine, Serum 0.54 mg/dL (0.55-1.02); EST Glomerular Filtration Rate 130 mL/min (>60); Est Glom Filt Rate - Afr Amer 157 mL/min (>60); Estimated Creatinine Clearance 125.75 ml/min; Glucose 121 mg/dL (74-106); Potassium 4.4 mmol/L (3.5-5.1); Sodium Level 139 mmol/L (136-145)
[2022-12-28] MEDS: Ensure Plus High Protein 120 ML LIQUID PO ×4 (10:03→21:18)
[2022-12-28] MEDS: Enoxaparin 40 MG/0.4 ML Syringe SC (10:04)
--- NOTE | 2022-12-28 10:09 | PCM.PN.INT ---
Assessment & Plan Assessment/Plan (1) COPD exacerbation: (2) Status asthmaticus: (3) Nicotine addiction: PLAN: Plan RECOMMENDATIONS: 1. Continue bronchodilators and steroids at current dosing 2. Hold mucolytic given reported anaphylaxis 3. Sputum culture if possible 4. Encourage incentive spirometer and out of bed as tolerated 5. Walking oximetry prior to discharge 6. Outpatient work-up for obstructive lung disease 7. Encourage tobacco and THC cessation IMPRESSIONS: 1. Acute hypoxic respiratory insufficiency secondary to presumed COPD versus asthma exacerbation Patient does have emphysematous changes noted on CT scan of the chest. Patient also has some bronchial thickening that could be consistent with chronic bronchitis versus asthma. Patient does report a history of asthma in the past. Unclear why patient has had recurrent exacerbations recently. Patient has not had a significant eosinophilia recently, but did have 10.3% back in 2012. Patient does have an extensive smoking history. Clinical suspicion is for an overlap type syndrome, but this would be have to be confirmed as an outpatient. We will add mucolytic and keep steroids at current dosing for now. Unfortunately, pulmonary toileting will be limited given patient's reported anaphylaxis to guaifenesin 2. Tobacco abuse/allergies/THC use Complicates care, management, recovery and prognosis. Okay to add a nicotine patch at this time. Patient did have significant eosinophilia in the past. Extensive work-up for IgE, RAST and eosinophilia will be severely hampered given patient's recurrent steroids. Subjective Subjective Patient did okay overnight. Patient subjectively feels slightly improved compared to yesterday. Patient is having a wet cough, but no production. Patient is still requiring supplemental oxygen to maintain saturations. Patient states that she has been admitted to the hospital 3 times in the last year for similar type complaints. Patient does report to significant outpatient smoking and marijuana use. Objective Data Objective Data Vital Signs: Vital Signs Temp Pulse Resp BP Pulse Ox O2 Del Method O2 Flow Rate 36.6 C 84 18 110/68 98 Nasal Cannula 3 12/28/22 07:54 12/28/22 07:54 12/28/22 07:54 12/28/22 07:54 12/28/22 07:54 12/28/22 09:04 12/28/22 09:04 Oxygen Flow Rate (L/min) 3 Oxygen Delivery Method Nasal Cannula Weight: 66.338 kg Body Mass Index (BMI) 23.6 Intake & Output: Intake and Output for Last 24 Hours 12/26/22 12/27/22 12/28/22 23:59 23:59 23:59 Intake Total 926.67 / 1126.67 200 / 200 Balance 926.67 / 1126.67 200 / 200 Medical Nutrition Assessment Dietitian: Malnutrition Criteria Met Start: 12/27/22 12:54 Freq: Status: Active Protocol: Document 12/27/22 12:54 AG (Rec: 12/27/22 12:54 AG [id number]) Nutrition Malnutrition Evidence of Malnutrition Exists Yes Malnutrition (moderate): Chronic Evidenced By Suboptimal Energy Intake ( Moderate),Weight Loss ( Moderate),Physical Changes ( Mild) Clinical Problem Chronic Disease or Condition Related Malnutrition Etiology chronic, moderate malnutrition related to inadequate energy intake w/ increased energy needs d/t asthma/COPD Signs/Symptoms as evidenced by reported unintentional wt loss of 25#/ 16% wt loss over 6 months; Mild muscle wasting/fat loss evident per physical exam in orbital, clavicle, acromion, and temporal areas; estimated PO intake meeting <75% of estimated energy needs > 1 month Status Active Problem Recommendation Dietitian Recommendations/Changes continue regular diet as tolerated; will add 120mL ensure plus high protein 4x/ day w/medpass for additional calories/protein if consumed. Lab / Micro Data Attestation: I reviewed the patient's lab results. Result Diagrams: 12/28/22 05:36 12/28/22 05:36 Labs: Laboratory Results - last 24 hr 12/27/22 11:10: Troponin I High Sens 27 12/27/22 12:52: Troponin I High Sens 21 12/27/22 16:48: Troponin I High Sens 12 12/28/22 05:36: WBC 10.5, RBC 4.09 L, Hgb 13.0, Hct 41.3, MCV 101.0 H, MCH 31.8, MCHC 31.5 L, RDW Std Deviation 53.1 H, RDW Coeff of Kar[place] 14.3, Plt Count 274, MPV 10.7, Immature Gran % (Auto) 0.700, Neut % (Auto) 84.1 H, Lymph % (Auto) 12.3 L, [place] % (Auto) 2.6, Eos % (Auto) 0.2, Baso % (Auto) 0.1, Absolute Neuts (auto) 8.8 H, Absolute Lymphs (auto) 1.29, Nucleated RBC % 0 12/28/22 05:36: Sodium 139, Potassium 4.4, Chloride 111 H, Carbon Dioxide 23.0, Anion Gap 5, BUN 11, Creatinine 0.54 L, Estim Creat Clear Calc 125.75, Est GFR (MDRD) Af Amer 157, Est GFR (MDRD) Non-Af 130, BUN/Creatinine Ratio 20.3 H, Glucose 121 H, Calcium 8.5 Physical Exam Narrative Significant other at the bedside during my evaluation. Const alert and oriented x3 Constitutional Narrative: Mild conversational dyspnea General Appearance: cooperative and well developed HEENT normocephalic, head/scalp atraumatic, hearing grossly normal bilaterally and moist oral mucous membranes Mouth: oral and palatal mucosa normal Eyes PERRL, EOMs intact bilaterally and conjunctivae normal Eyes Narrative: Glasses in place. Neck no lymphadenopathy, supple and no JVD Chest Chest: abnormal inspection of the chest increased A-P diameter and symmetrical chest wall rise Resp Resp Narrative: On nasal cannula. Conversational dyspnea Effort and Inspection: tachypneic; Negative for uses accessory muscles Auscultation: wheezes throughout; Negative for rales or rhonchi Cardio regular rate, regular rhythm, S1 normal heart sound, S2 normal heart sound, no murmurs, no rub and no gallops GI normal to inspection, nondistended, normoactive bowel sounds, soft to palpation, non-tender and non-distended Extremity normal to inspection, full ROM and no clubbing, cyanosis or edema Neuro oriented x3, CN's II-XII intact bilaterally, moves all extremities and no focal motor deficits Psych Mood & Affect: anxious Charges/Coding Visit Charges Inpatient E&M: 18025 Subs Hosp L2
--- NOTE | 2022-12-28 11:40 | CASEMGMT ---
RN CM Face to Face with patient for initial transition planning/care coordination assessment. RN CM introduced self and role at [facility]. Patient lying in bed, alert and oriented, at bedside. Patient willing to participate in assessment and is able to answer all questions appropriately. Care providers, pharmacy, and demographics verified. Patient wishes to discharge home, denies need for home health at this time. Patient states she has no further needs or concerns at this time. CM to follow for discharge planning needs that may arise. PCP: Yas Specialists: Kip shank scourer Preferred Pharmacy: [facility] Insurance: [employer] Prescription Benefit: yes Living Will/HPOA: none LNOK: , son Living Arrangements: patient lives with in a single story home with 4 steps and railing to enter the home. Patient states she is independent at home. Transportation: self, DME/HHC: Patient has nebulizer and pulse ox. Will monitor for home oxygen, review DME agencies with patient and prefers [employer]. No previous HHC. Disposition Plan: Patient to discharge home with family support and follow-up plans in place. Jessica SHAH, RN, CM
--- NOTE | 2022-12-28 12:41 | PN.HOSP_ITS ---
Reason for Visit Reason for Visit: Diagnoses Nicotine dependence, unspecified, uncomplicated (12/27/22) Allergic rhinitis, unspecified (12/27/22) Chronic obstructive pulmonary disease with (acute) exacerbation (12/27/22) Unspecified asthma with status asthmaticus (12/27/22) Acute respiratory failure with hypoxia (12/27/22) Acute and chronic respiratory failure with hypoxia (12/27/22) Acute and chronic respiratory failure with hypercapnia (12/27/22) Subjective Subjective Doing well, breathing little bit better today. Objective Data Objective Data Vital Signs: Vital Signs Temp Pulse Resp BP Pulse Ox O2 Del Method O2 Flow Rate 98.1 F 90 16 110/70 86 Nasal Cannula 0 12/28/22 10:00 12/28/22 11:22 12/28/22 11:22 12/28/22 10:00 12/28/22 10:11 12/28/22 10:00 12/28/22 10:11 Oxygen Flow Rate (L/min) [ 3 AMBULATING with Oxygen #2] Oxygen Flow Rate (L/min) [ 2 AMBULATING with Oxygen #1] Oxygen Flow Rate (L/min) [At 3 REST with Oxygen] Oxygen Flow Rate (L/min) [At 0 REST on Room Air] Oxygen Flow Rate (L/min) 3 Oxygen Delivery Method Nasal Cannula Weight: 146 lb 4.004 oz Body Mass Index (BMI) 23.6 Intake & Output: Intake and Output for Last 24 Hours 12/27/22 12/28/22 12/29/22 03:59 03:59 03:59 Intake Total 1126.67 / 1126.67 360 / 360 Balance 1126.67 / 1126.67 360 / 360 Medical Nutrition Assessment Dietitian: Malnutrition Criteria Met Start: 12/27/22 12:54 Freq: Status: Active Protocol: Document 12/27/22 12:54 AG (Rec: 12/27/22 12:54 [id number]) Nutrition Malnutrition Evidence of Malnutrition Exists Yes Malnutrition (moderate): Chronic Evidenced By Suboptimal Energy Intake ( Moderate),Weight Loss ( Moderate),Physical Changes ( Mild) Clinical Problem Chronic Disease or Condition Related Malnutrition Etiology chronic, moderate malnutrition related to inadequate energy intake w/ increased energy needs d/t asthma/COPD Signs/Symptoms as evidenced by reported unintentional wt loss of 25#/ 16% wt loss over 6 months; Mild muscle wasting/fat loss evident per physical exam in orbital, clavicle, acromion, and temporal areas; estimated PO intake meeting <75% of estimated energy needs > 1 month Status Active Problem Recommendation Dietitian Recommendations/Changes continue regular diet as tolerated; will add 120mL ensure plus high protein 4x/ day w/medpass for additional calories/protein if consumed. Lab / Micro Data Result Diagrams: 12/28/22 05:36 12/28/22 05:36 Labs: Laboratory Results - last 24 hr 12/27/22 12:52: Troponin I High Sens 21 12/27/22 16:48: Troponin I High Sens 12 12/28/22 05:36: WBC 10.5, RBC 4.09 L, Hgb 13.0, Hct 41.3, MCV 101.0 H, MCH 31.8, MCHC 31.5 L, RDW Std Deviation 53.1 H, RDW Coeff of Karime 14.3, Plt Count 274, MPV 10.7, Immature Gran % (Auto) 0.700, Neut % (Auto) 84.1 H, Lymph % (Auto) 12.3 L, [place] % (Auto) 2.6, Eos % (Auto) 0.2, Baso % (Auto) 0.1, Absolute Neuts (auto) 8.8 H, Absolute Lymphs (auto) 1.29, Nucleated RBC % 0 12/28/22 05:36: Sodium 139, Potassium 4.4, Chloride 111 H, Carbon Dioxide 23.0, Anion Gap 5, BUN 11, Creatinine 0.54 L, Estim Creat Clear Calc 125.75, Est GFR (MDRD) Af Amer 157, Est GFR (MDRD) Non-Af 130, BUN/Creatinine Ratio 20.3 H, Glucose 121 H, Calcium 8.5 Physical Exam Narrative General: Alert, Oriented x3, Cooperative, No apparent distress HEENT: Atraumatic, PERRLA, EOMI, Normocephalic Oral: Moist Mucosa Neck: Supple, No JVD Lungs: Diminished, Normal air movement, No rhonchi, wheeze, No rales Cardiovascular: Regular rate, Regular Rhythm, Normal S1, Normal S2, No murmurs Abdomen: Soft, Non Tender, Non-Distended, No Hepato-splenomegaly Extremities: No edema, Capillary Refill Less than 3 Seconds Skin: No rashes, No breakdown Musculoskeletal: No Tenderness to Palpation of Joints or Extremities Neurological: Cranial nerves II-XII grossly intact, Motor Exam 5/5 strength throughout, Sensory exam intact to light touch and pain Psych/Mental Status: Normal Affect, Appropriate Assessment & Plan Assessment/Plan (1) Acute respiratory failure with hypoxia: (2) COPD exacerbation: PLAN: Plan #Acute hypoxic respiratory failure due to COPD versus asthma exacerbation * admit to PCU * CT of the chest done showed no evidence of PE; done at [facility], and report in chart. * place on IV solumedrol 40mg q8hrly. * consult pulmonology * says she had PFTs; records not available in system. * says she had similar presentation back in 2012, and was diagnosed with Mycoplasma pneumonia. * hydrate gently with IVF * She will need to follow-up with pulmonology here as an outpatient for repeat PFTs and medication adjustments #Nicotine dependence * has a 30 pack year smoking history, and says she is not interested in quitting. * nicotine patch 21mg daily. DVT: Lovenox Charges/Coding Visit Charges Inpatient E&M: 03942 Subs Hosp L2
--- NOTE | 2022-12-28 20:45 | NURSING ---
pt notified this RN just now that they found out about her carbon monoxide leak at home approx. 3hrs ago.
[2022-12-29 03:38] VITALS: PULSE 62
[2022-12-29 04:00] VITALS: BP 91/57; PULSE 68; RESP 18; TEMP 36.7; O2SAT 96
[2022-12-29 06:48] LABS: Absolute Lymphocyte Count 1.87 X10^3/uL (0.83-4.51); Absolute Neutrophil Count 10.1 X10^3/uL (2.0-7.7); Basophil# 0.02 X10^3/uL; Basophil% 0.2 % (0-1); Eosinophil# 0.01 X10^3/uL; Eosinophils% 0.1 % (0-5); Hematocrit 41.4 % (37-47); Hemoglobin 13.3 g/dL (12.0-15.0); Lymphocyte # 1.87 X10^3/ul (0.83-4.51); Lymphocyte % 14.7 % (19-41); Mean Corp Hgb Conc 32.1 g/dL (32-36); Mean Corpuscular Volume 99.5 fL (81-99); Mean Platelet Vol. 10.5 fl (6.2-12.0); Monocyte# 0.65 X10^3/uL; Monocyte% 5.1 % (0-10); NRBC Flagged by Analyzer 0 % (0-5); Neutrophil # 10.07 X10^3/uL (2.7-7.7); Neutrophil % 79.1 % (47-70); Platelet Count 282 K/mm3 (150-450); RBC Distribution Width CV 14.4 % (11.6-14.6); RBC Distribution Width SD 53.1 fl (35.1-43.9); Red Blood Count 4.16 M/mm3 (4.2-5.4); White Blood Count 12.7 K/mm3 (4.4-11.0)
[2022-12-29] MEDS: Ipratropium/Albuterol Sulfate 3 ML AMPUL.NEB INHALATION ×2 (07:09→11:13)
[2022-12-29 07:11] VITALS: PULSE 73; RESP 18; O2SAT 94
[2022-12-29 07:16] LABS: Anion Gap 6 (5-15); BUN 20 mg/dL (7-18); BUN/Creat Ratio 36.3 RATIO (10-20); Chloride 107 mmol/L (98-107); Creatinine, Serum 0.55 mg/dL (0.55-1.02); EST Glomerular Filtration Rate 128 mL/min (>60); Est Glom Filt Rate - Afr Amer 154 mL/min (>60); Estimated Creatinine Clearance 123.47 ml/min; Glucose 109 mg/dL (74-106); Potassium 4.3 mmol/L (3.5-5.1); Sodium Level 138 mmol/L (136-145)
--- NOTE | 2022-12-29 08:34 | PCM.PN.INT ---
Assessment & Plan Assessment/Plan (1) COPD exacerbation: (2) Status asthmaticus: (3) Nicotine addiction: PLAN: Plan RECOMMENDATIONS: 1. Continue bronchodilators and steroids at current dosing 2. Hold mucolytic given reported anaphylaxis 3. Sputum culture if possible 4. Encourage incentive spirometer and out of bed as tolerated 5. Walking oximetry prior to discharge 6. Outpatient work-up for obstructive lung disease 7. Encourage tobacco and THC cessation IMPRESSIONS: 1. Acute hypoxic respiratory insufficiency secondary to presumed COPD versus asthma exacerbation Patient does have emphysematous changes noted on CT scan of the chest. Patient also has some bronchial thickening that could be consistent with chronic bronchitis versus asthma. Patient does report a history of asthma in the past. Unclear why patient has had recurrent exacerbations recently. Carbon monoxide poisoning would be a concern, but this was not checked on presentation and likely would have normalized by now. Patient has not had a significant eosinophilia recently, but did have 10.3% back in 2013. Patient does have an extensive smoking history. Clinical suspicion is for an overlap COPD/asthma type syndrome, but this would be have to be confirmed as an outpatient. Likely transition to prednisone tomorrow if patient continues to improve. Unfortunately, pulmonary toileting will be limited given patient's reported anaphylaxis to guaifenesin 2. Tobacco abuse/allergies/THC use Complicates care, management, recovery and prognosis. Okay to add a nicotine patch at this time. Patient did have significant eosinophilia in the past. Extensive work-up for IgE, RAST and eosinophilia will be severely hampered given patient's recurrent steroids. 3. Social issues Discussed with the patient that she is still legally making her the next of kin. Patient will need to fill out POA paperwork to designate her son. Charge nurse was notified to let case management/social work aware of the concern. Subjective Subjective Patient appears to be much more comfortable today. Patient continues to report a wet cough, but no production. No hemoptysis has been reported. Patient states she has been able to ambulate around the room, but has not tried the hallway yet. Patient states that there was a propane leak found in her home since she has been hospitalized. This is being addressed. Patient also reported that she is currently from her for the last couple of years. Patient was under the impression that making her son the emergency contact made him the decision maker. Did discuss with the patient about POA paperwork Objective Data Objective Data Vital Signs: Vital Signs Temp Pulse Resp BP Pulse Ox O2 Del Method O2 Flow Rate 36.7 C 73 18 91/57 L 94 Nasal Cannula 2 12/29/22 04:00 12/29/22 07:11 12/29/22 07:11 12/29/22 04:00 12/29/22 07:11 12/29/22 07:11 12/29/22 07:11 Oxygen Flow Rate (L/min) [ 3 AMBULATING with Oxygen #2] Oxygen Flow Rate (L/min) [ 2 AMBULATING with Oxygen #1] Oxygen Flow Rate (L/min) [At 3 REST with Oxygen] Oxygen Flow Rate (L/min) [At 0 REST on Room Air] Oxygen Flow Rate (L/min) 2 Oxygen Delivery Method Nasal Cannula Weight: 66.338 kg Body Mass Index (BMI) 23.6 Intake & Output: Intake and Output for Last 24 Hours 12/27/22 12/28/22 12/29/22 23:59 23:59 23:59 Intake Total 926.67 / 1126.67 800 / 800 Balance 926.67 / 1126.67 800 / 800 Medical Nutrition Assessment Dietitian: Malnutrition Criteria Met Start: 12/27/22 12:54 Freq: Status: Active Protocol: Document 12/27/22 12:54 (Rec: 12/27/22 12:54 [id number]) Nutrition Malnutrition Evidence of Malnutrition Exists Yes Malnutrition (moderate): Chronic Evidenced By Suboptimal Energy Intake ( Moderate),Weight Loss ( Moderate),Physical Changes ( Mild) Clinical Problem Chronic Disease or Condition Related Malnutrition Etiology chronic, moderate malnutrition related to inadequate energy intake w/ increased energy needs d/t asthma/COPD Signs/Symptoms as evidenced by reported unintentional wt loss of 25#/ 16% wt loss over 6 months; Mild muscle wasting/fat loss evident per physical exam in orbital, clavicle, acromion, and temporal areas; estimated PO intake meeting <75% of estimated energy needs > 1 month Status Active Problem Recommendation Dietitian Recommendations/Changes continue regular diet as tolerated; will add 120mL ensure plus high protein 4x/ day w/medpass for additional calories/protein if consumed. Lab / Micro Data Attestation: I reviewed the patient's lab results. Result Diagrams: 12/29/22 06:20 12/29/22 06:20 Labs: Laboratory Results - last 24 hr 12/29/22 06:20: WBC 12.7 H, RBC 4.16 L, Hgb 13.3, Hct 41.4, MCV 99.5 H, MCH 32.0, MCHC 32.1, RDW Std Deviation 53.1 H, RDW Coeff of Karime 14.4, Plt Count 282, MPV 10.5, Immature Gran % (Auto) 0.800, Neut % (Auto) 79.1 H, Lymph % (Auto) 14.7 L, [place] % (Auto) 5.1, Eos % (Auto) 0.1, Baso % (Auto) 0.2, Absolute Neuts (auto) 10.1 H, Absolute Lymphs (auto) 1.87, Nucleated RBC % 0 12/29/22 06:20: Sodium 138, Potassium 4.3, Chloride 107, Carbon Dioxide 25.0, Anion Gap 6, BUN 20 H, Creatinine 0.55, Estim Creat Clear Calc 123.47, Est GFR (MDRD) Af Amer 154, Est GFR (MDRD) Non-Af 128, BUN/Creatinine Ratio 36.3 H, Glucose 109 H, Calcium 9.0 Physical Exam Const alert and oriented x3 Constitutional Narrative: No conversational dyspnea General Appearance: cooperative and well developed HEENT normocephalic, head/scalp atraumatic, hearing grossly normal bilaterally and moist oral mucous membranes Eyes PERRL, EOMs intact bilaterally and conjunctivae normal Eyes Narrative: Glasses in place. Neck no lymphadenopathy, supple and no JVD Chest Chest: abnormal inspection of the chest increased A-P diameter and symmetrical chest wall rise Resp Resp Narrative: Improved air exchange compared to yesterday Effort and Inspection: Negative for uses accessory muscles Auscultation: wheezes throughout; Negative for rales or rhonchi Cardio regular rate, regular rhythm, S1 normal heart sound, S2 normal heart sound, no murmurs, no rub and no gallops GI normal to inspection, nondistended, normoactive bowel sounds, soft to palpation, non-tender and non-distended Extremity normal to inspection, full ROM and no clubbing, cyanosis or edema Neuro oriented x3, CN's II-XII intact bilaterally, moves all extremities and no focal motor deficits Charges/Coding Visit Charges Inpatient E&M: 76637 Subs Hosp L2
[2022-12-29] MEDS: Enoxaparin 40 MG/0.4 ML Syringe SC (09:37)
[2022-12-29] MEDS: Ensure Plus High Protein 120 ML LIQUID PO (09:37)
[2022-12-29 09:39] VITALS: O2SAT 92; O2SAT 96
[2022-12-29 10:00] VITALS: BP 113/71; PULSE 81; RESP 18; TEMP 36.6; O2SAT 92
--- NOTE | 2022-12-29 10:26 | CASEMGMT ---
Social Work Consult: Advanced directives. Referral source: Nursing staff. This administrator social welfare met with patient in room. Introduced self and administrator social welfare role. Patient agreeable to speak with this administrator social welfare. This administrator social welfare broached topic of advanced care planning, patient agreeable to completing Health Care Power of Auditor/Quality and is not interested in Living Will. This administrator social welfare did provided counseling on advanced care planning. This administrator social welfare assisting patient in completing Health Care Power of Auditor/Quality. This administrator social welfare provided patient with original document and placed copy on chart. Patient denies any questions or concerns. No further services requested or indicated. Jeanne ROWLAND, TESSY
--- NOTE | 2022-12-29 10:30 | DCINST_ITS ---
Discharge Instructions Diet Discharge Diet: No restrictions Activity Discharge Activity: Return to Normal Activity Dressing / Incision Call your doctor if you observe: Fever of 101 or Higher, Shortness of breath, Dizziness, Fainting spells, Swelling in the ankles, Chest pain and Increased palpitations (irregular heartbeat) Follow Up Care Test Results: Test results from this visit will be discussed in further detail at your follow- up appointment, if applicable. Discharge Plan Admission Admit Date/Time: 12/27/22 10:46 Attending Provider: Noah Eaton Primary Care Provider: Sherry Sorenson Consulting Providers: Quoc Shin ; Evert Hendricks ; Harsh Marie ; Constantine Bird ; Shaylee Card NP ; Sushma Ferrari Discharge Orders/Prescriptions Prescriptions: New prednisone 10 mg tablet 10 mg PO DAILY Qty: 42 0RF Rx Instructions: Take 4 tablets daily for 4 days then 3 tablets daily for 4 days then 2 tablets daily for 4 days then 1 tablet daily for 4 days then half tablet daily for 4 days Continued albuterol sulfate 2.5 MG/3 ML solution for nebulization 2.5 mg inhalation Q4H PRN Qty: 25 0RF Rx Instructions: Use q4 hours and PRN for wheezing albuterol sulfate 1 PUFF inhaler 2 puff inhalation Q4H PRN PRN (Reason: Wheezing) Qty: 1 0RF Referrals / Follow Up: Quoc Shin MD [Med Staff - Active Staff] - Within 1 Month Sherry Sorenson DO [Primary Care Provider] - Within 1 Week Disposition Disposition (needs filled in before D/C Order can be placed): Home, Self Care
--- NOTE | 2022-12-29 10:41 | CASEMGMT ---
Patient does not qualify for home oxygen at this time. Patient had no further questions or concerns at this time.
[2022-12-29 11:14] VITALS: PULSE 74; RESP 18; O2SAT 94
--- NOTE | 2022-12-29 11:19 | PHA.DC.MR ---
Pharmacy Service has performed discharge medication reconciliation for this patient. The patient's discharge medication list was reviewed for discrepancies and discrepancies were resolved. Home Medications albuterol sulfate 2.5 mg/3 mL (0.083 %) solution for nebulization 2.5 mg (3 mL) inhalation Q4H PRN #25 vials 09/01/19 albuterol sulfate 90 mcg/actuation aerosol inhaler 2 puff inhalation Q4H PRN PRN Wheezing ##1 09/11/19 prednisone 10 mg tablet 10 mg PO DAILY #42 tabs 12/29/22
--- NOTE | 2022-12-29 15:24 | DS.PCM_ITS ---
Providers Date of Admission: 12/27/22 Primary Care Physician: Dr. Sherry Sorenson, Consultations 12/27/22 12:20 Consult: Gas Or Water Meter Installer / Pulmonary Medicine Routine Consulting Provider: Pulmonary Medicine dede Erickson Reason for Consult: emphysema EMERGENT Consult: Yes MD Notified: Yes Date Notified: 12/27/22 Time Notified: 12:28 Method of Notification: Verbal Method of Consult:: In-Person Reason For Visit: COPD EXACERBATION Diagnosis Discharge Diagnosis (1) COPD exacerbation: Status: Chronic Code(s): J44.1 - Chronic obstructive pulmonary disease with (acute) exacerbation (2) Status asthmaticus: Status: Acute Code(s): J45.902 - Unspecified asthma with status asthmaticus (3) Nicotine addiction: Status: Acute Code(s): F17.200 - Nicotine dependence, unspecified, uncomplicated Plan #Acute hypoxic respiratory failure due to COPD versus asthma exacerbation * admit to PCU * CT of the chest done showed no evidence of PE; done at [facility], and report in chart. * place on IV solumedrol 40mg q8hrly. * consult pulmonology * says she had PFTs; records not available in system. * says she had similar presentation back in 2012, and was diagnosed with Mycoplasma pneumonia. * hydrate gently with IVF * She will need to follow-up with pulmonology here as an outpatient for repeat PFTs and medication adjustments #Nicotine dependence * has a 30 pack year smoking history, and says she is not interested in quit ting. * nicotine patch 21mg daily. DVT: Lovenox Medications at Discharge Home Medications albuterol sulfate 2.5 mg/3 mL (0.083 %) solution for nebulization 2.5 mg (3 mL) inhalation Q4H PRN #25 vials 09/01/19 albuterol sulfate 90 mcg/actuation aerosol inhaler 2 puff inhalation Q4H PRN PRN Wheezing ##1 09/11/19 prednisone 10 mg tablet 10 mg PO DAILY #42 tabs 12/29/22 Hospital Course Operations None Procedures None Summary of Care Provided Minutes Spent on Discharge: 38 Hospital Course: Per HPI: JO SIMON, is a 42 F with a past medical history as outlined which includes asthma and chronic nicotine dependence.? He she was admitted as a direct transfer from [facility] in hospital where she had presented with a complaint of shortness of breath.? Patient states since she has been in the hospital at least 4 times on account of recurrent shortness of breath.? She has presented to multiple emergency rooms and urgent care centers with similar complaints of shortness of breath.? She says she was diagnosed with bro nchitis and discharged home on prednisone the first time.? She completed a course of prednisone and the shortness of breath recurred.? She subsequently went to an urgent care center and was placed on Tamiflu after she was diagnosed with influenza.? She completed a course of Tamiflu and another prednisone taper and the shortness of breath recurred so she went back to the ED.? At the ED she was again given prednisone and breathing treatments as well as an inhaler and referred to pulmonology.? She states she had an outpatient pulmonary function test and was due to see pulmonology-Dr. Shin tomorrow.? However today she says she felt acutely short of breath in the night and checked her oxygen and saturation levels.? She was saturating down in the 70s and so she called the EMS and went to the emergency room [facility] in hospital.? She denies any cough, chest pain or palpitations, fever or chills or dizziness or lightheadedness.? She does admit to wheezing.? Review of systems otherwise negative.? Patient has a history of childhood asthma for which she uses inhalers.? Patient also smokes heavily and has been smoking a pack a day for the past 13 years and says she is not interested in quitting.? She states she had similar symptoms such as these in 2013 and after multiple visits to the ER she says she was diagnosed with mycoplasma pneumonia.? Records were reviewed and in [address] Machelle krause in the hospital and per his note he had a high suspicion for mycoplasma pneumonia.? Patient states that she did test positive for mycoplasma by the lab records in the EMR do not appear to go back to 2013 so its not possible to clarify this. Vitals in the ED with respiratory rate of 18, patient was on 3 L of oxygen.? She was 98.1 Fahrenheit and pulse rate was 94.? She was saturating 96% on 3 L of oxygen.? CBC and BMP were ordered and troponin was negative.? CBC and BMP done at outside hospital showed no acute pathology.? She did have a CTA of the chest done at outside hospital which was negative for PE but did show no evidence of consolidation, pleural effusion or pneumothorax and showed a normal heart size.? It shows centrilobular emphysema and mild bronchial wall thickening consistent with bronchiolitis as well as calcified splenic granulomata.? She has been admitted to be managed for hypoxia likely due to probable COPD exacerbation with underlying interstitial pneumonitis.? Of note, patient denies any exposure to asbestos.? 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 Hospital Course: 1. Acute hypoxic respiratory failure secondary to COPD versus asthma exacerbation/nicotine dependence?42-year-old female presents to the hospital with significant shortness of breath and states that she had been in the hospital about 4 times since [place] because of her recurrent shortness of breath issues. She does continue to smoke and to the baby counselor did not appear to be willing to quit smoking at the moment. She was set up with follow- up with a baby counselor however she had to miss the appointment because she was here in the hospital. She did improve rather quickly with steroids and breathing treatments. Yesterday with ambulation she was requiring 3 L both at rest and with ambulation however today she did not require any oxygen with ambulation and hitting her inside duration last as well on room air. I discussed with her the plan for discharge today she expressed understanding of the risk benefits of going home and would like to go today. We will place her on a prolonged steroid taper and set her up with outpatient follow-up with pulmonology. Physical Exam Narrative General: Alert, Oriented x3, Cooperative, No apparent distress HEENT: Atraumatic, PERRLA, EOMI, Normocephalic Oral: Moist Mucosa Neck: Supple, No JVD Lungs: Diminished, Normal air movement, No rhonchi, wheeze, No rales Cardiovascular: Regular rate, Regular Rhythm, Normal S1, Normal S2, No murmurs Abdomen: Soft, Non Tender, Non-Distended, No Hepato-splenomegaly Extremities: No edema, Capillary Refill Less than 3 Seconds Skin: No rashes, No breakdown Musculoskeletal: No Tenderness to Palpation of Joints or Extremities Neurological: Cranial nerves II-XII grossly intact, Motor Exam 5/5 strength throughout, Sensory exam intact to light touch and pain Psych/Mental Status: Normal Affect, Appropriate Weight / BMI Weight Weight: 146 lb 4.004 oz Body Mass Index (BMI) 23.6 ABG / Lab / Microbiology Data Result Diagrams: 12/29/22 06:20 12/29/22 06:20 Laboratory: Laboratory Results - last 24 hr 12/29/22 06:20: WBC 12.7 H, RBC 4.16 L, Hgb 13.3, Hct 41.4, MCV 99.5 H, MCH 32.0, MCHC 32.1, RDW Std Deviation 53.1 H, RDW Coeff of Karime 14.4, Plt Count 282, MPV 10.5, Immature Gran % (Auto) 0.800, Neut % (Auto) 79.1 H, Lymph % (Auto) 14.7 L, [place] % (Auto) 5.1, Eos % (Auto) 0.1, Baso % (Auto) 0.2, Absolute Neuts (auto) 10.1 H, Absolute Lymphs (auto) 1.87, Nucleated RBC % 0 12/29/22 06:20: Sodium 138, Potassium 4.3, Chloride 107, Carbon Dioxide 25.0, Anion Gap 6, BUN 20 H, Creatinine 0.55, Estim Creat Clear Calc 123.47, Est GFR (MDRD) Af Amer 154, Est GFR (MDRD) Non-Af 128, BUN/Creatinine Ratio 36.3 H, Glucose 109 H, Calcium 9.0 D/C Instructions Discharge Diet: No restrictions Call your doctor if you observe: Fever of 101 or Higher, Shortness of breath, Dizziness, Fainting spells, Swelling in the ankles, Chest pain and Increased palpitations (irregular heartbeat) Meaningful Use Info Meaningful Use Diagnoses (Choose all that apply): None applicable Discharge Plan Admission Admit Date/Time: 12/27/22 10:46 Attending Provider: Noah Eaton Primary Care Provider: Sherry Sorenson Consulting Providers: Quoc Shin ; Evert Hendricks ; Harsh Marie ; Constantine Bird ; Shaylee Card NP ; Sushma Ferrari Discharge Orders/Prescriptions Prescriptions: New prednisone 10 mg tablet 10 mg PO DAILY Qty: 42 0RF Rx Instructions: Take 4 tablets daily for 4 days then 3 tablets daily for 4 days then 2 tablets daily for 4 days then 1 tablet daily for 4 days then half tablet daily for 4 days Continued albuterol sulfate 2.5 MG/3 ML solution for nebulization 2.5 mg inhalation Q4H PRN Qty: 25 0RF Rx Instructions: Use q4 hours and PRN for wheezing albuterol sulfate 1 PUFF inhaler 2 puff inhalation Q4H PRN PRN (Reason: Wheezing) Qty: 1 0RF Referrals / Follow Up: Quoc Shin MD [Med Staff - Active Staff] - Within 1 Month Sherry Sorenson DO [Primary Care Provider] - Within 1 Week Disposition Disposition (needs filled in before D/C Order can be placed): Home, Self Care Charges/Coding Visit Charges Inpatient E&M: 41452 Disch Hosp >30min
== END 2022-12-29 12:56 | disposition home or self-care (01) | DRG 190 ==
PROVIDERS: Internal Medicine Critical Care Medicine; Student in an Organized Health Care Education/Training Program; Admitting Provider Internal Medicine; PCP Internal Medicine; Visit Provider Family Medicine
DX: J43.2 Centrilobular emphysema (principal); J96.01 Acute respiratory failure with hypoxia; E44.0 Moderate protein-calorie malnutrition; J45.51 Severe persistent asthma with (acute) exacerbation; F17.210 Nicotine dependence, cigarettes, uncomplicated; Z68.23 Body mass index [BMI] 23.0-23.9, adult; Z87.09 Personal history of other diseases of the respiratory system
CPT/HCPCS: 36415; 80048; 84484; 85025; 94640; 94668; 94762; 97802; 99252; 99406; J7030; A4216; G0463

== ENCOUNTER → 2023-03-22 | Outpatient (CLI) | payer OTHER, SELFPAY ==
--- NOTE | 2023-03-22 13:45 | PFTCOMP ---
COMPLETE PULMONARY FUNCTION TEST INTERPRETATION Brief HPI: Patient is a 43-year-old female, currently under the care of Shaylee Card, who presents to [facility] for complete pulmonary function tests secondary to diagnosis of asthma. Respiratory therapist reports good effort and reproducible results. Interpretation: Forced expiration spirometry shows a moderate large airways obstructive ventilatory defect with an FEV1 of 69% predicted. There is a significant bronchodilator response in FVC by strict ATS criteria. Spirograms are of good quality and plateau slowly, indicating slowly emptying areas of the lungs. The respiratory flow volume loop shows decreased expiratory flow rates at all lung volumes consistent with airway obstruction. Lung volumes by body plethysmography show a normal total lung capacity at 6.05 L, 108% predicted. All other lung volumes are within normal limits. Diffusion capacity by carbon monoxide is normal at 87% predicted. The airway resistance is elevated. No previous pulmonary function tests were available for review. Impression: Partially reversible moderate large airways obstructive ventilatory defect with relatively preserved lung volumes and DLCO
== END | disposition home or self-care (01) ==
PROVIDERS: PCP Internal Medicine; Referring Provider Nurse Practitioner Acute Care; Visit Provider Nurse Practitioner Acute Care
DX: J45.909 Unspecified asthma, uncomplicated (principal)
CPT/HCPCS: 94060; 94726; 94729

== ENCOUNTER 2024-05-09 00:06 | Emergency (ER) | payer OTHER, SELFPAY ==
--- NOTE | 2024-05-09 23:09 | ED.VIS.DYS ---
HPI History of Present Illness Detail of Chief Complaint: Patient was seen during hospitalwide computer downtime. Informant: patient Onset/Context/Timing Onset: Today Current Severity: Mild Maximum Severity: Moderate Worsened by: Nothing Relieved by: Nothing Narrative Narrative: 44-year-old female has a history of COPD the and asthma. Still smokes. May have a cough tonight which she opened up a container of chlorine and inhaled some of the gas that came out of the chlorine tablets. It caused her starting shortness of breath and wheezing. She denies any chest pain. She has no symptoms prior to being exposed to the chlorine gas. PE Risk Factors: Negative for Cancer, OCP + Smoking + > 35, Prior DVT or PE, Recent immobilization, Recent surgery or Recent travel Prior similar symptoms: Yes Recent Illness/Hospitalization: No PFSH [facility] Medical History Nicotine addiction Allergic rhinitis due to allergen Acute on chronic respiratory failure with hypoxia and hypercapnia Status asthmaticus COPD exacerbation Smoker Asthma Home Medications ?Medication ?Instructions ?Recorded ?Last Taken ?Type albuterol sulfate 2.5 mg/3 mL 2.5 mg (3 mL) inhalation Q4H PRN 09/01/19 12/27/22 Rx (0.083 %) solution for nebulization #25 vials albuterol sulfate 90 mcg/actuation 2 puff inhalation Q4H PRN PRN 09/11/19 12/27/22 Rx aerosol inhaler Wheezing ##1 fluticasone propionate 50 2 spray intranasal DAILY #16 grams 02/05/23 Unknown Rx mcg/actuation nasal spray,suspension mecobalamin (vitamin B12) 1,000 1,000 mcg PO DAILY 05/26/23 Unknown History mcg chewable tablet fluticasone fur. 100 mcg-umeclid 1 inh inhalation DAILY #3 device 11/25/23 Unknown Rx 62.5 mcg-vilant 25 mcg inhalat.powder (Trelegy Ellipta) Allergy/AdvReac Type Severity Reaction Status Date / Time guaifenesin (From Mucinex) Allergy Anaphylaxis Verified 11/25/23 08:48 Family History Other Adrenal cancer Hypertension Thyroid cancer Surgical History H/O dilation and curettage Social History Smoking Status: Current every day smoker tobacco type: cigarettes ROS ROS ED ROS Narrative Wheezing. Denies any recent illness. Review of Systems ROS Unobtainable: Denies due to encephalopathy Constitutional Constitutional ED: Denies chills or fever(s) Eyes Eyes: Denies blurry vision ENT ENT ED: Denies ear pain Cardiovascular Cardiovascular: Denies chest pain Respiratory/Chest Respiratory/Chest: Reports cough and dyspnea Gastrointestinal Gastrointestinal: Denies abdominal pain Genitourinary Genitourinary ED: Denies dysuria or hematuria Musculoskeletal Musculoskeletal: Denies arthralgias Integumentary Denies abscess Neurologic Neurologic: Denies headache(s) Psychiatric Psychiatric: Denies anxiety or depression Endocrine Endocrinology: Denies cold intolerance Hematologic/Lymphatic Hematologic/Lymphatic: Denies easy bleeding, easy bruising or lymphadenopathy Allergic/Immunologic Allergic/Immunologic ED: Denies mouth swelling, tongue swelling or urticaria EXAM Physical Exam Narrative Exam Narrative: 44-year-old female vital signs are stable. She is afebrile. Her pulse ox is 95% on room air no signs hypoxia. H EENT exam unremarkable. Neck nontender. Lungs expiratory wheezing throughout. Equal symmetrical. Heart regular rhythm no murmur. Chest wall nontender. Abdomen soft nontender. Moving all 4 extremities. Calves are nontender without edema or cords. She is awake and alert. Const Positive well nourished and well developed; Negative for obese, cachectic, contractures or unkempt General Appearance ED: well developed and NAD; Negative for unkempt, cachectic, contractures or pallor Nutritional Appearance: Negative for cachectic or obese HEENT Reports moist mucous membranes atraumatic; Negative for trauma or tenderness Eyes PERRL and EOMs intact bilaterally General Eye ED: Negative for pale conjunctiva Neck no lymphadenopathy, supple, no meningeal signs and no JVD Lymph Lymphatic: Negative for other Resp No normal respiratory effort and No clear to auscultation bilaterally Effort and Inspection: Negative for pain with movement Auscultation: wheezes; Negative for rales or rhonchi Cardio regular rate, regular rhythm, S1 normal heart sound, S2 normal heart sound and no murmurs Rate: Negative for bradycardia or tachycardic Rhythm: Negative for abnormal rhythm GI non-tender, non-distended and no masses Inspection: Negative for other Auscultation: normoactive bowel sounds Palpation: soft; Negative for tender, guarding, mass or rebound tenderness present Back/Spine no CVA tenderness and normal to inspection General Back: Negative for CVA tenderness Extremity normal to inspection General Extremety ED: Negative for edema, tenderness or other findings General Extremity: Negative for edema or other findings Neuro oriented x3 and CN's II-XII intact bilaterally Sensorium / Orientation: alert, oriented to person, oriented to place and oriented to time; Negative for orientation impaired, confused or lethargic Speech: speech normal Motor Exam: strength 5/5 throughout Psych mental status grossly normal Appearance: Negative for unkempt Attitude: No agitated Mood & Affect: Negative for depressed, anxious or tearful Thought Process: normal thought process Skin no wounds and skin turgor normal General Skin Exam: Negative for jaundice or pallor Lesions: no lesions Rashes: no rashes Trauma: Negative for abrasion or laceration MDM MDM MDM Narrative Medical decision making narrative: 44-year-old female history of COPD and asthma was exposed to fumes from chlorine tablets tonight and started having wheezing and shortness of breath. Prior to that she had no symptoms. This appears to be an obvious exacerbation of COPD and asthma flare. She was treated with p.o. prednisone and DuoNeb and albuterol aerosols. Repeat exam she is doing much better. Breathing easier. She still has some few scattered wheezes but she will be discharged home with prednisone. She already has inhalers. She was also instructed to stop smoking long-term. History & Record Review Discussion w/independent historian: Patient and Family Discharge Plan Triage ED Provider: Jon Lopez Dx/Rx/DC Orders Clinical Impression: Acute asthma flare, COPD exacerbation, Chlorine gas exposure Prescriptions: No Action fluticasone propionate 50 mcg/actuation spray,suspension 2 spray intranasal DAILY Qty: 16 3RF mecobalamin (vitamin B12) 1,000 mcg tablet,chewable 1,000 mcg PO DAILY Trelegy Ellipta 100-62.5-25 mcg blister with device 1 inh inhalation DAILY Qty: 3 3RF albuterol sulfate 2.5 MG/3 ML solution for nebulization 2.5 mg inhalation Q4H PRN Qty: 25 0RF Rx Instructions: Use q4 hours and PRN for wheezing albuterol sulfate 1 PUFF inhaler 2 puff inhalation Q4H PRN PRN (Reason: Wheezing) Qty: 1 0RF Primary Care Provider: Sherry Sorenson Activity Restrictions/Additional Instructions: Patient was discharged home on oral steroids. Instructed she could stop them once her wheezing resolved. She already has inhalers at home. Print Language: Brazilian Disposition Disposition: Home, Self Care Discharge Date/Time: 05/09/24 01:45
== END 2024-05-09 01:45 | disposition home or self-care (01) ==
LOC: ED 10:15
PROVIDERS: Emergency Provider Emergency Medicine; PCP Internal Medicine; Visit Provider Emergency Medicine
DX: T59.4X1A Toxic effect of chlorine gas, accidental (unintentional), initial encounter (principal); J44.1 Chronic obstructive pulmonary disease with (acute) exacerbation; F17.210 Nicotine dependence, cigarettes, uncomplicated; Z79.51 Long term (current) use of inhaled steroids
CPT/HCPCS: 94640; 99283

== ENCOUNTER → 2024-06-26 | Outpatient (CLI) | payer OTHER, SELFPAY | END | disposition home or self-care (01) | LOC: PSN 09:24 | PROVIDERS: PCP Internal Medicine; Referring Provider Nurse Practitioner Acute Care; Visit Provider Nurse Practitioner Acute Care | DX: J44.9 Chronic obstructive pulmonary disease, unspecified (principal) | CPT/HCPCS: 94060; 94726; 94729 ==

== ENCOUNTER → 2024-07-03 | Outpatient (CLI) | payer OTHER, SELFPAY ==
[2024-07-03 12:45] VITALS: PULSE 66; PULSE 70; PULSE 87; PULSE 91; PULSE 92; PULSE 93; O2SAT 96; O2SAT 97; O2SAT 98
[2024-07-03 13:33] LABS: Absolute Lymphocyte Count 2.79 X10^3/uL (0.83-4.51); Absolute Neutrophil Count 7.6 X10^3/uL (2.0-7.7); Basophil# 0.07 X10^3/uL; Basophil% 0.6 % (0-1); Eosinophil# 0.37 X10^3/uL; Eosinophils% 3.3 % (0-5); Hematocrit 46.3 % (37-47); Hemoglobin 14.8 g/dL (12.0-15.0); Lymphocyte # 2.79 X10^3/ul (0.83-4.51); Lymphocyte % 24.6 % (19-41); Mean Corpuscular Hgb 31.2 pg (27.0-32.0); Mean Corpuscular Volume 97.5 fL (81-99); Monocyte# 0.49 X10^3/uL; Monocyte% 4.3 % (0-10); NRBC Flagged by Analyzer 0.2 % (0-5); Neutrophil # 7.57 X10^3/uL (2.7-7.7); Neutrophil % 66.8 % (47-70); Platelet Count 267 K/mm3 (150-450); RBC Distribution Width CV 12.7 % (11.6-14.6); RBC Distribution Width SD 46.1 fl (35.1-43.9); Red Blood Count 4.75 M/mm3 (4.2-5.4); White Blood Count 11.3 K/mm3 (4.4-11.0)
--- NOTE | 2024-07-04 10:17 | PCM.PSN.6M ---
PSN 6 Minute Walk Test 6 Minute Walk Test 6 Minute Walk Test: 6 Minute Walk Test PSN:6-Minute Walk Test Start: 07/03/24 12:44 Freq: Status: Active Protocol: [id number].6MINW Document 07/03/24 12:45 MICAHLOIS (Rec: 07/03/24 12:47 ALFASTACEYLOIS [id number]) 6 Minute Walk Test Date Performed 07/03/24 Time Performed 12:30 Height 5 ft 6.5 in Weight: 149 lb Weight in Pounds [address]: Shaylee Card [employer] Assistive device used: None Pre-test Oxygen Delivery Method Room Air Pulse Ox (%) 97 Pulse Rate (60-100 beats/min) 66 Dyspnea Davis Scale (0-10) 0 Exertion Davis Scale (6-20) 6 1st minute Oxygen Delivery Method Room Air Pulse Ox (%) 98 Pulse Rate (60-100 beats/min) 87 2nd minute Oxygen Delivery Method Room Air Pulse Ox (%) 97 Pulse Rate (60-100 beats/min) 87 3rd minute Oxygen Delivery Method Room Air Pulse Ox (%) 96 Pulse Rate (60-100 beats/min) 91 4th minute Oxygen Delivery Method Room Air Pulse Ox (%) 97 Pulse Rate (60-100 beats/min) 92 5th minute Oxygen Delivery Method Room Air Pulse Ox (%) 97 Pulse Rate (60-100 beats/min) 91 6th minute Oxygen Delivery Method Room Air Pulse Ox (%) 97 Pulse Rate (60-100 beats/min) 93 Dyspnea Davis Scale (0-10) 3 Exertion Davis Scale (6-20) 12 Post-test Oxygen Delivery Method Room Air Pulse Ox (%) 98 Pulse Rate (60-100 beats/min) 70 Full Laps Walked 20 Partial Lap, Number of Tiles Walked 5 Total Distance Walked (ft) 1185 Interpretation Interpretation: The patient ambulated 1185 feet over the course of 6 minutes beginning on room air without assistive devices. Pretesting oxygen saturation was noted to be 97% on room air. With ambulation, the shira oxygen saturation was 96%. There was no significant exertional oxygen desaturation. Recommendations Recommendations: There is no indication for the use of supplemental oxygen at this time.
[2024-07-09 00:06] LABS: Aspirgillus flavus Negative (Neg:<1:1); Aspirgillus fumigatus Negative (Neg:<1:1); Aspirgillus niger Negative (Neg:<1:1); Cytoplasmic Ab (C-ANCA) <1:20 titer (Neg:<1:20); Immunoglobulin E 237 IU/mL (6-495); Perinuclear Ab (P-ANCA) <1:20 titer (Neg:<1:20)
[2024-07-09 01:06] LABS: Alternaria alternata <0.10 kU/L (Class 0); Bermuda Grass <0.10 kU/L (Class 0); Bluegrass, Kentucky <0.10 kU/L (Class 0); Cat Hair/Dander, Standard <0.10 kU/L (Class 0); D farinae Mite 0.22 kU/L (Class 0/I); D pteronyssinus 0.25 kU/L (Class 0/I); Dog Epithelia <0.10 kU/L (Class 0); Elm, American White <0.10 kU/L (Class 0); Mouse Urine <0.10 kU/L (Class 0); Oak, White <0.10 kU/L (Class 0); Plantain, English <0.10 kU/L (Class 0); Ragweed, Short/Common <0.10 kU/L (Class 0)
== END | disposition home or self-care (01) ==
PROVIDERS: PCP Internal Medicine; Referring Provider Nurse Practitioner Acute Care; Visit Provider Nurse Practitioner Acute Care
DX: J30.9 Allergic rhinitis, unspecified (principal); J44.9 Chronic obstructive pulmonary disease, unspecified
CPT/HCPCS: 36415; 82785; 85025; 86003; 86256; 86606; 94618